=== PATIENT | female | born 1940 | race African-American/Black ===

== ENCOUNTER 2017-01-25 10:52 | Inpatient (IN) | payer OTHER ==
[2017-01-25] MEDS ORDERED: SODIUM CHLORIDE 0.9% 1000 ML INFUS.BAG IV ONE (11:12)
--- NOTE | 2017-01-25 11:19 | PDOC ---
Attending Attestation - Resident Resident Name: Alfa Alvarez - ED Attending Attestation I have performed the following: I have examined & evaluated the patient, The case was reviewed & discussed with the resident, I agree w/resident's findings & plan, Exceptions are as noted - HPI HPI: 01/25/17 11:18 Abscess on Leg - Physicial Exam PE: 01/25/17 11:18 Non Toxic - Medical Decision Making 01/25/17 11:[address] Alfa Alvarez's Assessment and Plan <Jalen Cruz - Last Filed: 01/25/17 11:17> Heart Score/ECG Review - ECG Impressions Comment:: 01/25/17 15:[address] Cruz Impression: Normal sinus rhythm Right atrial enlargement Left axis deviation Pulmonary disease pattern ST&T wave abnormality, consider anterior ischemia Abnormal ECG Vent rate: 80 bpm <Annalisa Landa - Last Filed: 01/25/17 15:46>
--- NOTE | 2017-01-25 11:22 | PDOC ---
History of Present Illness - General Stated Complaint: Abscess ON LEG Time Seen by Provider: 01/25/17 10:54 History Source: Patient, EMS Exam Limitations: Dementia - History of Present Illness Initial Comments: 01/25/17 11:10 The patient is a 76F with a PMH of dementia, hypothyroidism who presents to the ED from [facility] for a LLE abscess. The patient cannot provide the hx so the hx is given by EMS and her paperwork. The patient's paperwork states that she has a LLE abscess and was started on augmentin BID 500 mg x 7 days. The patient is on coumadin secondary to multiple DVT's in LLE. Past History - Past Medical History Allergies/Adverse Reactions: Allergies Allergy/AdvReac Type Severity Reaction Status Date / Time Penicillins Allergy Verified 01/25/17 11:13 Home Medications: Ambulatory Orders Acetaminophen [Tylenol] 2 tab PO Q6H PRN 01/25/17 Alprazolam [Xanax] 0.25 mg PO Q6H PRN 01/25/17 Bisacodyl Suppository [Dulcolax Suppository -] 10 mg RC DAILY PRN 01/25/17 Cephalexin [Keflex] 500 mg PO BID 01/25/17 Citalopram Hydrobromide [Celexa -] 10 mg PO DAILY 01/25/17 Docusate Sodium [Move It Along] 100 mg PO BID 01/25/17 Gabapentin 300 mg PO BID 01/25/17 Hydromorphone HCl 4 mg PO BID 01/25/17 Hydromorphone HCl 4 mg PO Q6H PRN 01/25/17 Lactobacillus Acidophilus [Acidophilus] 100 mg PO BID 01/25/17 Levothyroxine Sodium [Levo-T] 50 mcg PO 0630 01/25/17 Magnesium Hydroxide [Milk of Magnesia] 2,400 mg PO DAILY PRN 01/25/17 Mirtazapine [Remeron -] 30 mg PO HS 01/25/17 Polyethylene Glycol 3350 [Miralax (For Bowel Prep) -] 17 gm PO DAILY 01/25/17 Quetiapine Fumarate [Seroquel -] 25 mg PO BID 01/25/17 Sennosides [Senokot] 2 tab PO HS 01/25/17 Warfarin Sodium [Coumadin] 5 mg PO DAILY 01/25/17 Review of Systems - Review of Systems Able to Perform ROS?: No (Demented) *Physical Exam - Physical Exam General Appearance: Yes: Nourished, Appropriately Dressed, Other (Bedbound) HEENT: positive: Normal Voice, Hearing Grossly Normal Respiratory/Chest: negative: Chest Tender, Lungs Clear (coarse breath sounds b/l ) Cardiovascular: positive: Regular Rhythm, Regular Rate, S1, S2. negative: Diastolic Murmur, Systolic Murmur Gastrointestinal/Abdominal: positive: Flat, Soft. negative: Tender Extremity: positive: Swelling (L calf), Calf Tenderness Integumentary: positive: Dry, Warm, Swelling Neurologic: positive: Normal Mood/Affect. negative: Fully Oriented Heart Score/ECG Review - ECG Impressions Comment:: 01/25/17 13:24 NSR with p wave enlargment and t wave inversion s in v2-v6 OK 124 QRS 86 QTC 422 ED Treatment Course - LABORATORY CBC & Chemistry Diagram: 01/25/17 11:39 01/25/17 11:39 Medical Decision Making - Medical Decision Making 01/25/17 11:51 The patient is a 76F with a PMH of dementia and hypothyroidism who presents to the ED with an abscess on her LLE. 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 The patient's urine was grossly dark brown. She is having watery diarrhea when we turned her. The abscess is actively draining pus. Will cover with broad spectrum abx. I will reassess when labs/imaging return. 01/25/17 12:59 WBC 12. Hgb 7.8 from 8.4 on 01/22 at the healthcare facility. UA is indicative of UTI but also shows blood. 01/25/17 13:14 Son came to bedside. He expressed that the patient had a cat bite and scratch near the area that is infected in her LLE. He also stated that she was put on a new psych medication and opioid medication are new. He is also requesting for tegretol for the patient's trigeminal neuralgia. Will discuss with my attending. *DC/Admit/Observation/Transfer Diagnosis at time of Disposition: Abscess Urinary tract infection Qualifiers: Urinary tract infection type: site unspecified Hematuria presence: with hematuria Qualified Code(s): N39.0 - Urinary tract infection, site not specified ; N39.0 - Urinary tract infection, site not specified; R31.9 - Hematuria, unspecified; R31.9 - Hematuria, unspecified - Discharge Dispostion Condition at time of disposition: Guarded Admit: Yes
[2017-01-25 11:48] LABS: BASOPHIL 0.8 % (0-2.0); MCHC 31.9 g/dl (32.0-36.0); MEAN CELL VOLUME 87.8 fl (80-96); MEAN PLT VOLUME 9.1 fl (7.5-11.1); NEUTROPHILS 77.2 % (42.8-82.8); PLATELET COUNT 328 K/MM3 (134-434); RDW 15.6 % (11.6-15.6)
[2017-01-25] MEDS ORDERED: PIPERACILLIN/TAZOB 3.375 GM/50 ML PRE-DOCKED IV ONE (12:02)
[2017-01-25] MEDS ORDERED: VANCOMYCIN 1,000 MG in DEXTROSE 5%-WATER - 250 ML IVPB ONE (12:02)
[2017-01-25 12:05] LABS: INR 2.15 (0.82-1.09); PROTHROMBIN TIME (PATIENT) 24.3 SEC (9.98-11.88)
[2017-01-25 12:07] LABS: ACTIVATED PTT 37.7 SECONDS (26.9-34.4)
[2017-01-25] MEDS ORDERED: VANCOMYCIN 1 GRAM (PRE-DOCKED) 250 ML IVPB ONE (12:11)
[2017-01-25] MEDS ORDERED: PIPERACILLIN/TAZOB 3.375 GM 50 ML IVPB ONE (12:11)
[2017-01-25 12:14] LABS: VENOUS BLOOD GAS HCO3 28.4 meq/L (19-25); VENOUS PH 7.35 (7.32-7.42)
[2017-01-25 12:15] LABS: ALBUMIN 1.9 g/dl (3.4-5.0); ANION GAP 10 (8-16); BILIRUBIN,TOTAL 0.4 mg/dL (0.2-1.0); CALCIUM 7.6 mg/dL (8.5-10.1); CO2 26 mmol/L (21-32); CREATININE 3.5 mg/dL (0.55-1.02); GLUCOSE,RANDOM 100 mg/dL (74-106); SGPT/ALT 27 U/L (12-78)
[2017-01-25 12:17] LABS: ALK PHOS 58 U/L (45-117); TROPONIN I 0.04 ng/ml (0.00-0.05)
[2017-01-25 12:18] LABS: URINE APPEARANCE TURBID; URINE BILIRUBIN NEGATIVE (NEGATIVE); URINE BLOOD 3+ (NEGATIVE); URINE COLOR YELLOW; URINE GLUCOSE (UA) NEGATIVE (NEGATIVE); URINE KETONE TRACE (NEGATIVE); URINE NITRITE NEGATIVE (NEGATIVE)
[2017-01-25 12:19] LABS: CPK 187 IU/L (26-192); SGOT/AST 45 U/L (15-37)
[2017-01-25 12:20] LABS: URINE PROTEIN 2+ (NEGATIVE)
[2017-01-25 12:30] LABS: URINE BACTERIA MANY /hpf (NONE SEEN); URINE MUCUS MANY; URINE RBC 50 /hpf (0-3); URINE WBC 58 /hpf (3-5)
[2017-01-25] MEDS ORDERED: carBAMazepine 100 MG TAB.CHEW PO ONE (14:01)
[2017-01-25] MEDS ORDERED: carBAMazepine 200 MG TABLET ONE (14:21)
--- NOTE | 2017-01-25 14:52 | EKG ---
Test Reason : Blood Pressure : / mmHG Vent. Rate : 080 BPM Atrial Rate : 080 BPM P-R Int : 124 ms QRS Dur : 086 ms QT Int : 366 ms P-R-T Axes : 035 -67 -01 degrees QTc Int : 422 ms NORMAL SINUS RHYTHM RIGHT ATRIAL ENLARGEMENT LEFT AXIS DEVIATION ABNORMAL ECG NO PREVIOUS ECGS AVAILABLE Confirmed by KALPESH CROWLEY, AKANKSHA ([id number]) on 01/25/2017 2:52:20 PM Referred By: Confirmed By:AKANKSHA POSEY MD
--- NOTE | 2017-01-25 18:08 | HP ---
Admitting History and Physical - Primary Care Physician PCP: Madi Lacy - Admission History of Present Illness: The patient is a 76F with a PMH of dementia, hypothyroidism who presents to the ED from [facility] for a LLE abscess. The patient cannot provide the hx so the hx is given by EMS and her paperwork. The patient's paperwork states that she has a LLE abscess and was started on augmentin BID 500 mg x 7 days. The patient is on coumadin secondary to multiple DVT's in LLE. 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 Endocrine: Yes: Hypothyroidism - Smoking History Smoking history: Unknown if ever smoked Have you smoked in the past 12 months: No - Alcohol/Substance Use Hx Alcohol Use: No Home Medications - Allergies Allergies/Adverse Reactions: Allergies Allergy/AdvReac Type Severity Reaction Status Date / Time Penicillins Allergy Verified 01/25/17 11:13 - Home Medications Home Medications: Ambulatory Orders Acetaminophen [Tylenol] 2 tab PO Q6H PRN 01/25/17 Alprazolam [Xanax] 0.25 mg PO Q6H PRN 01/25/17 Bisacodyl Suppository [Dulcolax Suppository -] 10 mg RC DAILY PRN 01/25/17 Cephalexin [Keflex] 500 mg PO BID 01/25/17 Citalopram Hydrobromide [Celexa -] 10 mg PO DAILY 01/25/17 Docusate Sodium [Move It Along] 100 mg PO BID 01/25/17 Gabapentin 300 mg PO BID 01/25/17 Hydromorphone HCl 4 mg PO BID 01/25/17 Hydromorphone HCl 4 mg PO Q6H PRN 01/25/17 Lactobacillus Acidophilus [Acidophilus] 100 mg PO BID 01/25/17 Levothyroxine Sodium [Levo-T] 50 mcg PO 0630 01/25/17 Magnesium Hydroxide [Milk of Magnesia] 1,200 mg PO DAILY PRN 01/25/17 Mirtazapine [Remeron -] 30 mg PO HS 01/25/17 Polyethylene Glycol 3350 [Miralax (For Bowel Prep) -] 17 gm PO DAILY 01/25/17 Quetiapine Fumarate [Seroquel -] 25 mg PO BID 01/25/17 Sennosides [Senokot] 2 tab PO HS 01/25/17 Warfarin Sodium [Coumadin] 5 mg PO DAILY 01/25/17 Physical Examination Vital Signs: Vital Signs Temperature 99.7 F H 01/25/17 11:13 Pulse Rate 86 01/25/17 11:13 Respiratory Rate 18 01/25/17 11:13 Blood Pressure 122/73 01/25/17 11:13 O2 Sat by Pulse Oximetry (%) 99 01/25/17 11:13 Constitutional: Yes: No Distress HENT: Yes: Atraumatic Neck: Yes: Supple Cardiovascular: Yes: Regular Rate and Rhythm Respiratory: Yes: CTA Bilaterally Gastrointestinal: Yes: Normal Bowel Sounds Extremities: Yes: Other (ABCESS LEFT LOWER POST CALF) Edema: No Neurological: Yes: Alert Imaging - Results X-ray: Report Reviewed Problem List - Problems (1) Abscess Assessment/Plan: iv abx id on board Code(s): L02.91 - CUTANEOUS ABSCESS, UNSPECIFIED (2) Urinary tract infection Assessment/Plan: on meds uc p Code(s): N39.0 - URINARY TRACT INFECTION, SITE NOT SPECIFIED Qualifiers: Urinary tract infection type: site unspecified Hematuria presence: with hematuria Qualified Code(s): N39.0 - Urinary tract infection, site not specified; N39.0 - Urinary tract infection, site not specified; R31.9 - Hematuria, unspecified; R31.9 - Hematuria, unspecified (3) BOYD (acute kidney injury) Assessment/Plan: MILD HYDRATION PROBABLY CKD NEPHRO CONSULT Code(s): N17.9 - ACUTE KIDNEY FAILURE, UNSPECIFIED Assessment/Plan Laboratory Tests 01/25/17 01/25/17 01/25/17 11:39 11:39 11:39 WBC 12.0 H RBC 2.78 L Hgb 7.8 L Hct 24.4 L MCV 87.8 MCH 28.0 MCHC 31.9 L RDW 15.6 Plt Count 328 MPV 9.1 Neutrophils % 77.2 Lymphocytes % 11.6 Monocytes % 9.4 Eosinophils % 1.0 Basophils % 0.8 PT with INR 24.30 H INR 2.15 H PTT (Actin FS) 37.7 H VBG pH POC VBG pCO2 POC VBG pO2 Mixed VBG HCO3 Sodium 143 Potassium 5.3 H Chloride 107 Carbon Dioxide 26 Anion Gap 10 BUN 61 H Creatinine 3.5 H Creat Clearance w eGFR 12.63 Random Glucose 100 Lactic Acid Calcium 7.6 L Total Bilirubin 0.4 AST 45 H ALT 27 Alkaline Phosphatase 58 Creatine Kinase 187 Creatine Kinase Index 0.7 CK-MB (CK-2) 1.456 Troponin I 0.04 Total Protein 6.0 L Albumin 1.9 L Urine Color Urine Appearance Urine pH Urine Protein Urine Glucose (UA) Urine Ketones Urine Blood Urine Nitrite Urine Bilirubin Urine Urobilinogen Urine RBC Urine WBC Urine Bacteria Urine Mucus Blood Type Antibody Screen Spec Expiration Date 01/25/17 01/25/17 01/25/17 11:39 11:45 12:09 WBC RBC Hgb Hct MCV MCH MCHC RDW Plt Count MPV Neutrophils % Lymphocytes % Monocytes % Eosinophils % Basophils % PT with INR INR PTT (Actin FS) VBG pH POC VBG pCO2 POC VBG pO2 Mixed VBG HCO3 Sodium Potassium Chloride Carbon Dioxide Anion Gap BUN Creatinine Creat Clearance w eGFR Random Glucose Lactic Acid 1.7 Calcium Total Bilirubin AST ALT Alkaline Phosphatase Creatine Kinase Creatine Kinase Index CK-MB (CK-2) Troponin I Total Protein Albumin Urine Color Yellow Urine Appearance Turbid Urine pH 7.0 Urine Protein 2+ H Urine Glucose (UA) Negative Urine Ketones Trace H Urine Blood 3+ H Urine Nitrite Negative Urine Bilirubin Negative Urine Urobilinogen 2.0 H Urine RBC 50 Urine WBC 58 Urine Bacteria Many Urine Mucus Many Blood Type Cancelled Antibody Screen Cancelled Spec Expiration Date Cancelled 01/25/17 01/25/17 01/25/17 12:09 12:40 16:10 WBC RBC Hgb Hct MCV MCH MCHC RDW Plt Count MPV Neutrophils % Lymphocytes % Monocytes % Eosinophils % Basophils % PT with INR INR PTT (Actin FS) VBG pH 7.35 POC VBG pCO2 52.8 H POC VBG pO2 31.7 Mixed VBG HCO3 28.4 H Sodium Potassium Chloride Carbon Dioxide Anion Gap BUN Creatinine Creat Clearance w eGFR Random Glucose Lactic Acid Calcium Total Bilirubin AST ALT Alkaline Phosphatase Creatine Kinase Creatine Kinase Index CK-MB (CK-2) Troponin I Total Protein Albumin Urine Color Urine Appearance Urine pH Urine Protein Urine Glucose (UA) Urine Ketones Urine Blood Urine Nitrite Urine Bilirubin Urine Urobilinogen Urine RBC Urine WBC Urine Bacteria Urine Mucus Blood Type B POSITIVE B POSITIVE Antibody Screen Spec Expiration Date
[2017-01-25] MEDS ORDERED: BISACODYL 10 MG SUPP.RECT RC PRN (18:09)
[2017-01-25 19:56] LABS: URINE LEUK ESTERASE TRACE (NEGATIVE)
[2017-01-25] MEDS ORDERED: ACETAMINOPHEN 325 MG TABLET (FP) ONE (21:13)
[2017-01-25] MEDS: ACETAMINOPHEN 325 MG TABLET (FP) PO PRN (21:27)
[2017-01-25] MEDS ORDERED: QUEtiapine FUMARATE 25 MG TABLET (FP) ONE (22:11)
[2017-01-25] MEDS: QUEtiapine FUMARATE 25 MG TABLET (FP) PO SCH (23:13)
[2017-01-26] MEDS: ALPRAZolam 0.25 MG TABLET PO PRN ×2 (00:51→08:58)
[2017-01-26 01:43] VITALS: BMI 22.5
[2017-01-26] MEDS: LEVOTHYROXINE NA 50 MCG TABLET (FP) PO SCH (06:16)
[2017-01-26 07:32] LABS: BASOPHIL 0.6 % (0-2.0); EOSINOPHIL 2.8 % (0-4.5); MCH 28.8 pg (25.7-33.7); MEAN CELL VOLUME 87.3 fl (80-96); MEAN PLT VOLUME 9.5 fl (7.5-11.1); NEUTROPHILS 73.6 % (42.8-82.8); PLATELET COUNT 301 K/MM3 (134-434); RDW 15.2 % (11.6-15.6); WHITE BLOOD COUNT 8.5 K/mm3 (4.0-10.0)
[2017-01-26 07:41] LABS: INR 2.58 (0.82-1.09); PROTHROMBIN TIME (PATIENT) 29.2 SEC (9.98-11.88)
[2017-01-26 07:59] LABS: ALBUMIN 1.7 g/dl (3.4-5.0); ANION GAP 8 (8-16); CALCIUM 7.2 mg/dL (8.5-10.1); CO2 28 mmol/L (21-32); CREATININE 3.6 mg/dL (0.55-1.02); GLUCOSE,RANDOM 72 mg/dL (74-106); SGOT/AST 22 U/L (15-37); SGPT/ALT 20 U/L (12-78)
[2017-01-26 08:00] LABS: ALK PHOS 48 U/L (45-117); BILIRUBIN,TOTAL 0.4 mg/dL (0.2-1.0)
[2017-01-26] MEDS: ACETAMINOPHEN 325 MG TABLET (FP) PO PRN (08:58)
[2017-01-26] MEDS: QUEtiapine FUMARATE 25 MG TABLET (FP) PO SCH ×2 (09:00→22:36)
[2017-01-26] MEDS: POLYETHYLENE GLYCOL 3350 119 GM BTL PO SCH (09:13)
[2017-01-26 09:40] LABS: ANISOCYTOSIS 1+; HYPOCHROMIA 2+; MICROCYTOSIS 1+
[2017-01-26] MEDS ORDERED: CITALOPRAM HYDROBROMIDE 10 MG TABLET (FP) PO SCH (10:00)
[2017-01-26] MEDS ORDERED: PT OWN MED DRAWER 7, Y5N ONE ×2 (12:15→13:55)
[2017-01-26] MEDS ORDERED: SODIUM CHLORIDE 1,000 ML IV SCH (15:15)
--- NOTE | 2017-01-26 15:56 | CON.ID ---
Consult Consult Specialty:: infectious diseases Reason for Consultation:: wound/abscess and cellulitis of the left leg - History of Present Illness History of Present Illness: patient with gross dementia in no capacity to give history [place] evlaution of her cellulittis and abscess on the left post leg 76F with a PMH of dementia, hypothyroidism who presents to the ED from [facility] for a LLE abscess. The patient cannot provide the hx so the hx is given by EMS and her paperwork. The patient's paperwork states that she has a LLE abscess and was started on augmentin BID 500 mg x 7 days. The patient is on coumadin secondary to multiple DVT's in LLE. patient basically moans - History Source History Provided By: Transfer Record Limitations to Obtaining History: Clinical Condition - Alcohol/Substance Use Hx Alcohol Use: No - Smoking History Smoking history: Unknown if ever smoked Have you smoked in the past 12 months: No Aproximately how many cigarettes per day: 0 Home Medications - Allergies Allergies/Adverse Reactions: Allergies Allergy/AdvReac Type Severity Reaction Status Date / Time Penicillins Allergy Verified 01/25/17 11:13 - Home Medications Home Medications: Ambulatory Orders Acetaminophen [Tylenol] 2 tab PO Q6H PRN 01/25/17 Alprazolam [Xanax] 0.25 mg PO Q6H PRN 01/25/17 Bisacodyl Suppository [Dulcolax Suppository -] 10 mg RC DAILY PRN 01/25/17 Cephalexin [Keflex] 500 mg PO BID 01/25/17 Citalopram Hydrobromide [Celexa -] 10 mg PO DAILY 01/25/17 Docusate Sodium [Move It Along] 100 mg PO BID 01/25/17 Gabapentin 300 mg PO BID 01/25/17 Hydromorphone HCl 4 mg PO BID 01/25/17 Hydromorphone HCl 4 mg PO Q6H PRN 01/25/17 Lactobacillus Acidophilus [Acidophilus] 100 mg PO BID 01/25/17 Levothyroxine Sodium [Levo-T] 50 mcg PO 0630 01/25/17 Magnesium Hydroxide [Milk of Magnesia] 1,200 mg PO DAILY PRN 01/25/17 Mirtazapine [Remeron -] 30 mg PO HS 01/25/17 Polyethylene Glycol 3350 [Miralax (For Bowel Prep) -] 17 gm PO DAILY 01/25/17 Quetiapine Fumarate [Seroquel -] 25 mg PO BID 01/25/17 Sennosides [Senokot] 2 tab PO HS 01/25/17 Warfarin Sodium [Coumadin] 5 mg PO DAILY 01/25/17 Review of Systems Unable to obtain ROS, reason: unable to obtain Physical Exam Vital Signs: Vital Signs Temperature 98.0 F 01/26/17 15:34 Pulse Rate 78 01/26/17 15:34 Respiratory Rate 18 01/26/17 15:34 Blood Pressure 103/58 01/26/17 15:34 O2 Sat by Pulse Oximetry (%) 96 01/25/17 23:13 Constitutional: Yes: Mild Distress, Other Cardiovascular: Yes: Regular Rate and Rhythm Respiratory: Yes: Regular, CTA Bilaterally Gastrointestinal: Yes: Normal Bowel Sounds, Soft Extremities: Yes: Erythema, Other Integumentary: Yes: Erythema, Other Wound/Incision: Yes: Draining, Other Neurological: Yes: Alert, Other Psychiatric: Yes: Alert, Other Labs: CBC, BMP 01/26/17 06:30 01/26/17 06:30 Imaging - Results Chest X-ray: Report Reviewed, Image Reviewed Assessment/Plan Problem List - Problems (1) Abscess Code(s): L02.91 - CUTANEOUS ABSCESS, UNSPECIFIED (2) Urinary tract infection Code(s): N39.0 - URINARY TRACT INFECTION, SITE NOT SPECIFIED Qualifiers: Urinary tract infection type: site unspecified Hematuria presence: with hematuria Qualified Code(s): N39.0 - Urinary tract infection, site not specified; N39.0 - Urinary tract infection, site not specified; R31.9 - Hematuria, unspecified; R31.9 - Hematuria, unspecified plan will start patient on clinda wound care rest as per primary dressing to be done
--- NOTE | 2017-01-26 16:20 | PN ---
Progress Note, Physician History of Present Illness: stable - Current Medication List Current Medications: Active Medications Acetaminophen (Tylenol -) 325 mg PO Q6H PRN PRN Reason: FEVER OR PAIN Last Admin: 01/26/17 08:58 Dose: 325 mg Alprazolam (Xanax -) 0.25 mg PO Q6H PRN PRN Reason: ANXIETY Last Admin: 01/26/17 08:58 Dose: 0.25 mg Bisacodyl (Dulcolax Suppository -) 10 mg RC DAILY PRN PRN Reason: CONSTIPATION Hydromorphone HCl (Dilaudid -) 4 mg PO Q12H PRN PRN Reason: PAIN Last Admin: 01/26/17 13:44 Dose: 4 mg Sodium Chloride (Normal Saline -) 1,000 mls @ 50 mls/hr IV Q20H [facility] Last Admin: 01/26/17 15:49 Dose: 50 mls/hr Clindamycin Phosphate (Cleocin 300 Mg Premix Ivpb) 50 mls @ 100 mls/hr IVPB Q8H -IV [facility] Levothyroxine Sodium (Synthroid -) 50 mcg PO 0630 [facility] Last Admin: 01/26/17 06:16 Dose: 50 mcg Polyethylene Glycol (Miralax (For Daily Use) -) 17 gm PO DAILY [facility] Last Admin: 01/26/17 09:13 Dose: Not Given Quetiapine Fumarate (Seroquel -) 25 mg PO BID [facility] Last Admin: 01/26/17 09:00 Dose: 25 mg Warfarin Sodium (Coumadin -) 5 mg PO DAILY@1800 [facility] - Objective Vital Signs: Vital Signs Temperature 98.0 F 01/26/17 15:34 Pulse Rate 78 01/26/17 15:34 Respiratory Rate 18 01/26/17 15:34 Blood Pressure 103/58 01/26/17 15:34 O2 Sat by Pulse Oximetry (%) 96 01/25/17 23:13 Constitutional: Yes: No Distress HENT: Yes: Atraumatic Neck: Yes: Supple Cardiovascular: Yes: Regular Rate and Rhythm Respiratory: Yes: CTA Bilaterally Gastrointestinal: Yes: Normal Bowel Sounds Extremities: Yes: WNL Neurological: Yes: Alert, Oriented Labs: CBC, BMP 01/26/17 06:30 01/26/17 06:30 INR, PTT INR 2.58 (0.82-1.09) H 01/26/17 06:30 Problem List - Problems (1) Abscess Assessment/Plan: iv abx id on board Code(s): L02.91 - CUTANEOUS ABSCESS, UNSPECIFIED (2) Urinary tract infection Assessment/Plan: on meds uc p Code(s): N39.0 - URINARY TRACT INFECTION, SITE NOT SPECIFIED Qualifiers: Urinary tract infection type: site unspecified Hematuria presence: with hematuria Qualified Code(s): N39.0 - Urinary tract infection, site not specified; N39.0 - Urinary tract infection, site not specified; R31.9 - Hematuria, unspecified; R31.9 - Hematuria, unspecified
[2017-01-26 16:58] LABS: BASOPHIL 0.4 % (0-2.0); EOSINOPHIL 3.6 % (0-4.5); MCH 28.1 pg (25.7-33.7); MCHC 32.3 g/dl (32.0-36.0); MEAN CELL VOLUME 86.9 fl (80-96); MEAN PLT VOLUME 9.6 fl (7.5-11.1); NEUTROPHILS 73.4 % (42.8-82.8); PLATELET COUNT 328 K/MM3 (134-434); RDW 15.2 % (11.6-15.6); WHITE BLOOD COUNT 7.4 K/mm3 (4.0-10.0)
[2017-01-26] MEDS: CLINDAMYCIN 300 MG PREMIX IVPB 50 ML IVPB SCH (17:12)
[2017-01-26] MEDS: WARFARIN NA 5 MG TABLET (UD) PO SCH (18:30)
--- NOTE | 2017-01-26 20:08 | CONSULT ---
Consult Consult Specialty:: Nephrology Reason for Consultation:: BOYD - History of Present Illness Chief Complaint: sent in for left lower extremity cellulitis History of Present Illness: Pt is a 76 year old female with pmhx of dementia and hypothyroidism who was sent in from the [place] for a left lower ext abscess/cellulitis. She is unable to give history secondary to dementia. She denies fevers or chills. She denies shortness of breath. I was called to evaluate her for BOYD as her creatinine is elevated. She denies history of CKD however she is confused and not a reliable historian. She was also found to be anemic. 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 Endocrine: Yes: Hypothyroidism - Alcohol/Substance Use Hx Alcohol Use: No - Smoking History Smoking history: Unknown if ever smoked Have you smoked in the past 12 months: No Aproximately how many cigarettes per day: 0 Home Medications - Allergies Allergies/Adverse Reactions: Allergies Allergy/AdvReac Type Severity Reaction Status Date / Time Penicillins Allergy Verified 01/25/17 11:13 - Home Medications Home Medications: Ambulatory Orders Acetaminophen [Tylenol] 2 tab PO Q6H PRN 01/25/17 Alprazolam [Xanax] 0.25 mg PO Q6H PRN 01/25/17 Bisacodyl Suppository [Dulcolax Suppository -] 10 mg RC DAILY PRN 01/25/17 Cephalexin [Keflex] 500 mg PO BID 01/25/17 Citalopram Hydrobromide [Celexa -] 10 mg PO DAILY 01/25/17 Docusate Sodium [Move It Along] 100 mg PO BID 01/25/17 Gabapentin 300 mg PO BID 01/25/17 Hydromorphone HCl 4 mg PO BID 01/25/17 Hydromorphone HCl 4 mg PO Q6H PRN 01/25/17 Lactobacillus Acidophilus [Acidophilus] 100 mg PO BID 01/25/17 Levothyroxine Sodium [Levo-T] 50 mcg PO 0630 01/25/17 Magnesium Hydroxide [Milk of Magnesia] 1,200 mg PO DAILY PRN 01/25/17 Mirtazapine [Remeron -] 30 mg PO HS 01/25/17 Polyethylene Glycol 3350 [Miralax (For Bowel Prep) -] 17 gm PO DAILY 01/25/17 Quetiapine Fumarate [Seroquel -] 25 mg PO BID 01/25/17 Sennosides [Senokot] 2 tab PO HS 01/25/17 Warfarin Sodium [Coumadin] 5 mg PO DAILY 01/25/17 Family Disease History - Family Disease History Family History: Unable to Obtain Review of Systems Unable to obtain ROS, reason: pt confused - Review of Systems Constitutional: reports: No Symptoms Eyes: reports: No Symptoms Neck: reports: No Symptoms Cardiovascular: reports: No Symptoms Respiratory: reports: No Symptoms Gastrointestinal: reports: No Symptoms Genitourinary: reports: No Symptoms Musculoskeletal: reports: No Symptoms Integumentary: reports: Erythema, Wound Neurological: reports: No Symptoms Physical Exam Vital Signs: Vital Signs Temperature 98.1 F 01/26/17 17:46 Pulse Rate 72 01/26/17 17:46 Respiratory Rate 18 01/26/17 17:46 Blood Pressure 102/59 01/26/17 17:46 O2 Sat by Pulse Oximetry (%) 96 01/25/17 23:13 Constitutional: Yes: Calm Eyes: Yes: Conjunctiva Clear HENT: Yes: Atraumatic Neck: Yes: Supple Cardiovascular: Yes: S1, S2 Respiratory: Yes: CTA Bilaterally Renal/: Yes: Incontinence Musculoskeletal: Yes: Muscle Weakness Edema: No Wound/Incision: Yes: Dressing Dry and Intact Neurological: Yes: Confusion Labs: CBC, BMP 01/26/17 16:00 01/26/17 06:30 Laboratory Tests 01/25/17 01/25/17 01/25/17 11:39 11:39 12:09 WBC Hgb 7.8 L Plt Count Sodium Potassium 5.3 H Chloride Carbon Dioxide Creatinine 3.5 H Random Glucose Urine Color Yellow Urine Appearance Turbid Urine pH 7.0 Ur Specific [place] 1.015 Urine Protein 2+ H Urine Blood 3+ H Stool Occult Blood 01/26/17 01/26/17 01/26/17 06:30 06:30 12:40 WBC Hgb 6.9 L* D Plt Count Sodium 145 Potassium 4.6 Chloride 109 H Carbon Dioxide 28 Creatinine 3.6 H Random Glucose 72 L D Urine Color Urine Appearance Urine pH Ur Specific [place] Urine Protein Urine Blood Stool Occult Blood Negative 01/26/17 16:00 WBC 7.4 Hgb 6.7 L* Plt Count 328 Sodium Potassium Chloride Carbon Dioxide Creatinine Random Glucose Urine Color Urine Appearance Urine pH Ur Specific [place] Urine Protein Urine Blood Stool Occult Blood Imaging - Results Chest X-ray: Report Reviewed Problem List - Problems (1) Abscess Code(s): L02.91 - CUTANEOUS ABSCESS, UNSPECIFIED (2) BOYD (acute kidney injury) Code(s): N17.9 - ACUTE KIDNEY FAILURE, UNSPECIFIED (3) Hyperkalemia Code(s): E87.5 - HYPERKALEMIA Assessment/Plan Current Medications Generic Name Dose Route Start Last Admin Trade Name Freq PRN Reason Stop Dose Admin Acetaminophen 325 mg 01/25/17 18:09 01/26/17 08:58 Tylenol - PO 325 mg Q6H PRN Administration FEVER OR PAIN Alprazolam 0.25 mg 01/25/17 18:09 01/26/17 08:58 Xanax - PO 0.25 mg Q6H PRN Administration ANXIETY Bisacodyl 10 mg 01/25/17 18:09 Dulcolax Suppository - RC DAILY PRN CONSTIPATION Hydromorphone HCl 4 mg 01/26/17 12:56 01/26/17 13:44 Dilaudid - PO 4 mg Q12H PRN Administration PAIN Clindamycin Phosphate 50 mls @ 100 mls/hr 01/26/17 16:15 01/26/17 17:12 Cleocin 300 Mg Premix Ivpb IVPB 100 mls/hr Q8H-IV [facility] Administration Levothyroxine Sodium 50 mcg 01/26/17 06:30 01/26/17 06:16 Synthroid - PO 50 mcg 0630 [facility] Administration Polyethylene Glycol 17 gm 01/26/17 10:00 01/26/17 09:13 Miralax (For Daily Use) - PO Not Given DAILY [facility] Quetiapine Fumarate 25 mg 01/25/17 22:00 01/26/17 09:00 Seroquel - PO 25 mg BID [facility] Administration Warfarin Sodium 5 mg 01/26/17 18:00 01/26/17 18:30 Coumadin - PO 5 mg DAILY@1800 [facility] Administration 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 hyperkalemia resolved 3. anemia 4. hypothyroidism 5. leg abscess 6. 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
[2017-01-26 22:17] LABS: URINE APPEARANCE CLOUDY; URINE BILIRUBIN NEGATIVE (NEGATIVE); URINE BLOOD 3+ (NEGATIVE); URINE COLOR YELLOW; URINE GLUCOSE (UA) NEGATIVE (NEGATIVE); URINE KETONE NEGATIVE (NEGATIVE); URINE NITRITE NEGATIVE (NEGATIVE); URINE UROBILINOGEN NEGATIVE mg/dL (0.2-1.0)
[2017-01-26 22:18] LABS: URINE PROTEIN 1+ (NEGATIVE)
[2017-01-26 22:24] LABS: URINE BACTERIA MODERATE /hpf (NONE SEEN); URINE MUCUS FEW; URINE RBC 352 /hpf (0-3); URINE WBC 19 /hpf (3-5); YEAST FEW
[2017-01-27] MEDS: CLINDAMYCIN 300 MG PREMIX IVPB 50 ML IVPB SCH ×3 (03:28→17:40)
[2017-01-27] MEDS: LEVOTHYROXINE NA 50 MCG TABLET (FP) PO SCH (06:01)
[2017-01-27 07:41] LABS: BASOPHIL 0.5 % (0-2.0); EOSINOPHIL 3.6 % (0-4.5); MCHC 32.7 g/dl (32.0-36.0); MEAN CELL VOLUME 88.4 fl (80-96); MEAN PLT VOLUME 9.5 fl (7.5-11.1); NEUTROPHILS 71.5 % (42.8-82.8); PLATELET COUNT 337 K/MM3 (134-434); RDW 15.5 % (11.6-15.6); WHITE BLOOD COUNT 7.3 K/mm3 (4.0-10.0)
[2017-01-27 07:43] LABS: INR 3.31 (0.82-1.09); PROTHROMBIN TIME (PATIENT) 37.4 SEC (9.98-11.88)
[2017-01-27 07:55] LABS: ALBUMIN 1.9 g/dl (3.4-5.0); CALCIUM 7.7 mg/dL (8.5-10.1); SGOT/AST 19 U/L (15-37); SGPT/ALT 19 U/L (12-78)
[2017-01-27 08:04] LABS: ALK PHOS 56 U/L (45-117); ANION GAP 7 (8-16); BILIRUBIN,TOTAL 0.5 mg/dL (0.2-1.0); CO2 28 mmol/L (21-32); CREATININE 3.7 mg/dL (0.55-1.02); GLUCOSE,RANDOM 64 mg/dL (74-106); TOT PROT 5.7 g/dl (6.4-8.2)
[2017-01-27 09:19] LABS: URINE LEUK ESTERASE Negative (NEGATIVE)
[2017-01-27] MEDS: QUEtiapine FUMARATE 25 MG TABLET (FP) PO SCH ×2 (10:00→21:40)
--- NOTE | 2017-01-27 12:34 | PN ---
Progress Note, Physician History of Present Illness: Pt seen and examined at bedside. She remains confused. - Current Medication List Current Medications: Active Medications Acetaminophen (Tylenol -) 325 mg PO Q6H PRN PRN Reason: FEVER OR PAIN Last Admin: 01/26/17 08:58 Dose: 325 mg Alprazolam (Xanax -) 0.25 mg PO Q6H PRN PRN Reason: ANXIETY Last Admin: 01/26/17 08:58 Dose: 0.25 mg Bisacodyl (Dulcolax Suppository -) 10 mg RC DAILY PRN PRN Reason: CONSTIPATION Hydromorphone HCl (Dilaudid -) 4 mg PO Q6H PRN Last Admin: 01/26/17 22:35 Dose: 4 mg Clindamycin Phosphate (Cleocin 300 Mg Premix Ivpb) 50 mls @ 100 mls/hr IVPB Q8H -IV [facility] Last Admin: 01/27/17 03:28 Dose: Not Given Levothyroxine Sodium (Synthroid -) 50 mcg PO 0630 [facility] Last Admin: 01/27/17 06:01 Dose: 50 mcg Polyethylene Glycol (Miralax (For Daily Use) -) 17 gm PO DAILY [facility] Last Admin: 01/26/17 09:13 Dose: Not Given Quetiapine Fumarate (Seroquel -) 25 mg PO BID [facility] Last Admin: 01/26/17 22:36 Dose: 25 mg Warfarin Sodium (Coumadin -) 5 mg PO DAILY@1800 [facility] Last Admin: 01/26/17 18:30 Dose: 5 mg - Objective Vital Signs: Vital Signs Temperature 97.8 F 01/27/17 05:56 Pulse Rate 67 01/27/17 05:56 Respiratory Rate 20 01/27/17 05:56 Blood Pressure 104/73 01/27/17 05:56 O2 Sat by Pulse Oximetry (%) 95 01/26/17 21:00 Constitutional: Yes: Calm Eyes: Yes: Conjunctiva Clear HENT: Yes: Atraumatic Cardiovascular: Yes: S1, S2 Respiratory: Yes: CTA Bilaterally Gastrointestinal: Yes: Soft Genitourinary: Yes: Incontinence Musculoskeletal: Yes: Muscle Weakness Edema: No Wound/Incision: Yes: Dressing Dry and Intact Neurological: Yes: Confusion Labs: CBC, BMP 01/27/17 06:00 01/27/17 06:00 INR, PTT INR 3.31 (0.82-1.09) H 01/27/17 06:00 Problem List - Problems (1) Abscess Code(s): L02.91 - CUTANEOUS ABSCESS, UNSPECIFIED (2) BOYD (acute kidney injury) Code(s): N17.9 - ACUTE KIDNEY FAILURE, UNSPECIFIED (3) Hyperkalemia Code(s): E87.5 - HYPERKALEMIA Assessment/Plan Current Medications Generic Name Dose Route Start Last Admin Trade Name Freq PRN Reason Stop Dose Admin Acetaminophen 325 mg 01/25/17 18:09 01/26/17 08:58 Tylenol - PO 325 mg Q6H PRN Administration FEVER OR PAIN Alprazolam 0.25 mg 01/25/17 18:09 01/26/17 08:58 Xanax - PO 0.25 mg Q6H PRN Administration ANXIETY Bisacodyl 10 mg 01/25/17 18:09 Dulcolax Suppository - RC DAILY PRN CONSTIPATION Hydromorphone HCl 4 mg 01/26/17 20:24 01/26/17 22:35 Dilaudid - PO 4 mg Q6H PRN Administration Clindamycin Phosphate 50 mls @ 100 mls/hr 01/26/17 16:15 01/27/17 03:28 Cleocin 300 Mg Premix Ivpb IVPB Not Given Q8H-IV [facility] Levothyroxine Sodium 50 mcg 01/26/17 06:30 01/27/17 06:01 Synthroid - PO 50 mcg 0630 [facility] Administration Polyethylene Glycol 17 gm 01/26/17 10:00 01/26/17 09:13 Miralax (For Daily Use) - PO Not Given DAILY [facility] Quetiapine Fumarate 25 mg 01/25/17 22:00 01/26/17 22:36 Seroquel - PO 25 mg BID [facility] Administration Warfarin Sodium 5 mg 01/26/17 18:00 01/26/17 18:30 Coumadin - PO 5 mg DAILY@1800 [facility] Administration 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 hyperkalemia resolved 3. anemia 4. hypothyroidism 5. leg abscess 6. UTI 7. CKD Plan - will start d5 1/2 - repeat labs in am - hg is improved - likely ckd - called for outpt labs - repeat labs in am - will follow Dr Cat
[2017-01-27] MEDS: POLYETHYLENE GLYCOL 3350 119 GM BTL PO SCH (12:59)
[2017-01-27] MEDS: ALPRAZolam 0.25 MG TABLET PO PRN (15:02)
--- NOTE | 2017-01-27 15:58 | PN ---
Progress Note, Physician History of Present Illness: patient with dementia stable wound cx result noted swelling better - Current Medication List Current Medications: Active Medications Acetaminophen (Tylenol -) 325 mg PO Q6H PRN PRN Reason: FEVER OR PAIN Last Admin: 01/26/17 08:58 Dose: 325 mg Alprazolam (Xanax -) 0.25 mg PO Q6H PRN PRN Reason: ANXIETY Last Admin: 01/27/17 15:02 Dose: 0.25 mg Bisacodyl (Dulcolax Suppository -) 10 mg RC DAILY PRN PRN Reason: CONSTIPATION Hydromorphone HCl (Dilaudid -) 4 mg PO Q6H PRN Last Admin: 01/27/17 15:02 Dose: 4 mg Clindamycin Phosphate (Cleocin 300 Mg Premix Ivpb) 50 mls @ 100 mls/hr IVPB Q8H -IV [facility] Last Admin: 01/27/17 12:59 Dose: Not Given Aztreonam 1 gm/ Dextrose 50 mls @ 100 mls/hr IVPB Q8H-IV [facility] PRN Reason: Protocol Levothyroxine Sodium (Synthroid -) 50 mcg PO 0630 [facility] Last Admin: 01/27/17 06:01 Dose: 50 mcg Polyethylene Glycol (Miralax (For Daily Use) -) 17 gm PO DAILY [facility] Last Admin: 01/27/17 12:59 Dose: Not Given Quetiapine Fumarate (Seroquel -) 25 mg PO BID [facility] Last Admin: 01/27/17 10:00 Dose: 25 mg Warfarin Sodium (Coumadin -) 5 mg PO DAILY@1800 [facility] Last Admin: 01/26/17 18:30 Dose: 5 mg - Objective Vital Signs: Vital Signs Temperature 97.8 F 01/27/17 15:14 Pulse Rate 67 01/27/17 15:14 Respiratory Rate 20 01/27/17 15:14 Blood Pressure 95/62 01/27/17 15:14 O2 Sat by Pulse Oximetry (%) 95 01/26/17 21:00 Constitutional: Yes: Calm, Mild Distress Eyes: Yes: Conjunctiva Clear Neck: Yes: Supple Cardiovascular: Yes: Regular Rate and Rhythm Gastrointestinal: Yes: Normal Bowel Sounds, Soft Musculoskeletal: Yes: Other Extremities: Yes: Erythema, Other Integumentary: Yes: Erythema, Other Neurological: Yes: Alert, Other Labs: CBC, BMP 01/27/17 06:00 01/27/17 06:00 INR, PTT INR 3.31 (0.82-1.09) H 01/27/17 06:00 Assessment/Plan Problem List - Problems (1) Abscess Code(s): L02.91 - CUTANEOUS ABSCESS, UNSPECIFIED (2) Urinary tract infection Code(s): N39.0 - URINARY TRACT INFECTION, SITE NOT SPECIFIED Qualifiers: Urinary tract infection type: site unspecified Hematuria presence: with hematuria Qualified Code(s): N39.0 - Urinary tract infection, site not specified; N39.0 - Urinary tract infection, site not specified; R31.9 - Hematuria, unspecified; R31.9 - Hematuria, unspecified plan will start patient on clinda wound cx result noted added aztreo rest as per primary dressing to be done
[2017-01-27] MEDS ORDERED: AZTREONAM 1 GM in DEXTROSE 5%-WATER - 50 ML IVPB SCH (16:00)
[2017-01-27] MEDS: WARFARIN NA 5 MG TABLET (UD) PO SCH (17:38)
[2017-01-27] MEDS: AZTREONAM 0.5 GM in DEXTROSE 5%-WATER - 50 ML IVPB SCH (17:40)
--- NOTE | 2017-01-27 17:54 | PN ---
Progress Note, Physician History of Present Illness: stable - Current Medication List Current Medications: Active Medications Acetaminophen (Tylenol -) 325 mg PO Q6H PRN PRN Reason: FEVER OR PAIN Last Admin: 01/26/17 08:58 Dose: 325 mg Alprazolam (Xanax -) 0.25 mg PO Q6H PRN PRN Reason: ANXIETY Last Admin: 01/27/17 15:02 Dose: 0.25 mg Bisacodyl (Dulcolax Suppository -) 10 mg RC DAILY PRN PRN Reason: CONSTIPATION Hydromorphone HCl (Dilaudid -) 4 mg PO Q6H PRN Last Admin: 01/27/17 15:02 Dose: 4 mg Clindamycin Phosphate (Cleocin 300 Mg Premix Ivpb) 50 mls @ 100 mls/hr IVPB Q8H -IV [facility] Last Admin: 01/27/17 17:40 Dose: 100 mls/hr Aztreonam 0.5 gm/ Dextrose 50 mls @ 100 mls/hr IVPB Q8H-IV [facility] PRN Reason: Protocol Last Admin: 01/27/17 17:40 Dose: 100 mls/hr Levothyroxine Sodium (Synthroid -) 50 mcg PO 0630 [facility] Last Admin: 01/27/17 06:01 Dose: 50 mcg Polyethylene Glycol (Miralax (For Daily Use) -) 17 gm PO DAILY [facility] Last Admin: 01/27/17 12:59 Dose: Not Given Quetiapine Fumarate (Seroquel -) 25 mg PO BID [facility] Last Admin: 01/27/17 10:00 Dose: 25 mg Warfarin Sodium (Coumadin -) 5 mg PO DAILY@1800 [facility] Last Admin: 01/27/17 17:38 Dose: Not Given - Objective Vital Signs: Vital Signs Temperature 97.8 F 01/27/17 15:14 Pulse Rate 67 01/27/17 15:14 Respiratory Rate 20 01/27/17 15:14 Blood Pressure 95/62 01/27/17 15:14 O2 Sat by Pulse Oximetry (%) 95 01/26/17 21:00 Constitutional: Yes: Calm HENT: Yes: Atraumatic Neck: Yes: Supple Cardiovascular: Yes: Regular Rate and Rhythm Respiratory: Yes: CTA Bilaterally Gastrointestinal: Yes: Normal Bowel Sounds Extremities: Yes: WNL Neurological: Yes: Alert, Oriented Labs: CBC, BMP 01/27/17 06:00 01/27/17 06:00 INR, PTT INR 3.31 (0.82-1.09) H 01/27/17 06:00 Problem List - Problems (1) Abscess Assessment/Plan: iv abx id on board Code(s): L02.91 - CUTANEOUS ABSCESS, UNSPECIFIED (2) Urinary tract infection Assessment/Plan: on meds uc p Code(s): N39.0 - URINARY TRACT INFECTION, SITE NOT SPECIFIED Qualifiers: Urinary tract infection type: site unspecified Hematuria presence: with hematuria Qualified Code(s): N39.0 - Urinary tract infection, site not specified; N39.0 - Urinary tract infection, site not specified; R31.9 - Hematuria, unspecified; R31.9 - Hematuria, unspecified (3) BOYD (acute kidney injury) Code(s): N17.9 - ACUTE KIDNEY FAILURE, UNSPECIFIED
[2017-01-27] MEDS ORDERED: PT OWN MED DRAWER 7, Y5N ONE (18:10)
[2017-01-28] MEDS: AZTREONAM 0.5 GM in DEXTROSE 5%-WATER - 50 ML IVPB SCH ×3 (01:31→17:58)
[2017-01-28] MEDS: ALPRAZolam 0.25 MG TABLET PO PRN (01:56)
[2017-01-28] MEDS: CLINDAMYCIN 300 MG PREMIX IVPB 50 ML IVPB SCH ×3 (02:44→17:58)
[2017-01-28] MEDS: LEVOTHYROXINE NA 50 MCG TABLET (FP) PO SCH (06:27)
[2017-01-28 07:53] LABS: PROTHROMBIN TIME (PATIENT) 49.7 SEC (9.98-11.88)
[2017-01-28 08:46] LABS: INR 4.4 (0.82-1.09)
[2017-01-28 08:49] LABS: ANION GAP 9 (8-16); CALCIUM 7.4 mg/dL (8.5-10.1); CO2 27 mmol/L (21-32); CREATININE 3.5 mg/dL (0.55-1.02); GLUCOSE,RANDOM 63 mg/dL (74-106)
[2017-01-28] MEDS: QUEtiapine FUMARATE 25 MG TABLET (FP) PO SCH ×2 (10:34→22:15)
[2017-01-28] MEDS: POLYETHYLENE GLYCOL 3350 119 GM BTL PO SCH (10:35)
--- NOTE | 2017-01-28 14:49 | PN ---
Progress Note, Physician History of Present Illness: Pt seen and examined at bedside. She remains confused. - Current Medication List Current Medications: Active Medications Acetaminophen (Tylenol -) 325 mg PO Q6H PRN PRN Reason: FEVER OR PAIN Last Admin: 01/26/17 08:58 Dose: 325 mg Alprazolam (Xanax -) 0.25 mg PO Q6H PRN PRN Reason: ANXIETY Last Admin: 01/28/17 01:56 Dose: 0.25 mg Bisacodyl (Dulcolax Suppository -) 10 mg RC DAILY PRN PRN Reason: CONSTIPATION Hydromorphone HCl (Dilaudid -) 4 mg PO Q6H PRN Last Admin: 01/28/17 10:33 Dose: 4 mg Clindamycin Phosphate (Cleocin 300 Mg Premix Ivpb) 50 mls @ 100 mls/hr IVPB Q8H -IV [facility] Last Admin: 01/28/17 10:35 Dose: 100 mls/hr Aztreonam 0.5 gm/ Dextrose 50 mls @ 100 mls/hr IVPB Q8H-IV [facility] PRN Reason: Protocol Last Admin: 01/28/17 12:10 Dose: 100 mls/hr Levothyroxine Sodium (Synthroid -) 50 mcg PO 0630 [facility] Last Admin: 01/28/17 06:27 Dose: 50 mcg Polyethylene Glycol (Miralax (For Daily Use) -) 17 gm PO DAILY [facility] Last Admin: 01/28/17 10:35 Dose: Not Given Quetiapine Fumarate (Seroquel -) 25 mg PO BID [facility] Last Admin: 01/28/17 10:34 Dose: 25 mg Warfarin Sodium (Coumadin -) 5 mg PO DAILY@1800 [facility] Last Admin: 01/27/17 17:38 Dose: Not Given - Objective Vital Signs: Vital Signs Temperature 98.1 F 01/28/17 14:02 Pulse Rate 68 01/28/17 14:02 Respiratory Rate 18 01/28/17 14:02 Blood Pressure 118/71 01/28/17 05:57 O2 Sat by Pulse Oximetry (%) 96 01/27/17 21:00 Constitutional: Yes: Calm Eyes: Yes: Conjunctiva Clear HENT: Yes: Atraumatic Neck: Yes: Supple Cardiovascular: Yes: S1, S2 Respiratory: Yes: CTA Bilaterally Gastrointestinal: Yes: Normal Bowel Sounds, Soft Genitourinary: Yes: Incontinence Edema: No Wound/Incision: Yes: Dressing Dry and Intact Neurological: Yes: Confusion Labs: CBC, BMP 01/27/17 06:00 01/28/17 06:25 INR, PTT INR 4.40 (0.82-1.09) H* D 01/28/17 06:00 Problem List - Problems (1) Abscess Code(s): L02.91 - CUTANEOUS ABSCESS, UNSPECIFIED (2) BOYD (acute kidney injury) Code(s): N17.9 - ACUTE KIDNEY FAILURE, UNSPECIFIED (3) Hyperkalemia Code(s): E87.5 - HYPERKALEMIA Assessment/Plan Current Medications Generic Name Dose Route Start Last Admin Trade Name Freq PRN Reason Stop Dose Admin Acetaminophen 325 mg 01/25/17 18:09 01/26/17 08:58 Tylenol - PO 325 mg Q6H PRN Administration FEVER OR PAIN Alprazolam 0.25 mg 01/25/17 18:09 01/28/17 01:56 Xanax - PO 0.25 mg Q6H PRN Administration ANXIETY Bisacodyl 10 mg 01/25/17 18:09 Dulcolax Suppository - RC DAILY PRN CONSTIPATION Hydromorphone HCl 4 mg 01/26/17 20:24 01/28/17 10:33 Dilaudid - PO 4 mg Q6H PRN Administration Clindamycin Phosphate 50 mls @ 100 mls/hr 01/26/17 16:15 01/28/17 10:35 Cleocin 300 Mg Premix Ivpb IVPB 100 mls/hr Q8H-IV [facility] Administration Aztreonam 0.5 gm/ Dextrose 50 mls @ 100 mls/hr 01/27/17 18:00 01/28/17 12:10 IVPB 100 mls/hr Q8H-IV [facility] Administration Protocol Levothyroxine Sodium 50 mcg 01/26/17 06:30 01/28/17 06:27 Synthroid - PO 50 mcg 0630 [facility] Administration Polyethylene Glycol 17 gm 01/26/17 10:00 01/28/17 10:35 Miralax (For Daily Use) - PO Not Given DAILY [facility] Quetiapine Fumarate 25 mg 01/25/17 22:00 10/26/17 10:34 Seroquel - PO 25 mg BID [facility] Administration Warfarin Sodium 5 mg 01/26/17 18:00 01/27/17 17:38 Coumadin - PO Not Given DAILY@1800 [facility] 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 hyperkalemia resolved 3. anemia 4. hypothyroidism 5. leg abscess 6. UTI 7. CKD Plan - cont current fluids - repeat labs in am - awaiting labs to be faxed over from outside facility - likely ckd - monitor hg - will follow Dr Cat
--- NOTE | 2017-01-28 15:25 | PN ---
Progress Note, Physician History of Present Illness: awake and alert no distress - Current Medication List Current Medications: Active Medications Acetaminophen (Tylenol -) 325 mg PO Q6H PRN PRN Reason: FEVER OR PAIN Last Admin: 01/26/17 08:58 Dose: 325 mg Alprazolam (Xanax -) 0.25 mg PO Q6H PRN PRN Reason: ANXIETY Last Admin: 01/28/17 01:56 Dose: 0.25 mg Bisacodyl (Dulcolax Suppository -) 10 mg RC DAILY PRN PRN Reason: CONSTIPATION Hydromorphone HCl (Dilaudid -) 4 mg PO Q6H PRN Last Admin: 01/28/17 10:33 Dose: 4 mg Clindamycin Phosphate (Cleocin 300 Mg Premix Ivpb) 50 mls @ 100 mls/hr IVPB Q8H -IV [facility] Last Admin: 01/28/17 10:35 Dose: 100 mls/hr Aztreonam 0.5 gm/ Dextrose 50 mls @ 100 mls/hr IVPB Q8H-IV [facility] PRN Reason: Protocol Last Admin: 01/28/17 12:10 Dose: 100 mls/hr Levothyroxine Sodium (Synthroid -) 50 mcg PO 0630 [facility] Last Admin: 01/28/17 06:27 Dose: 50 mcg Polyethylene Glycol (Miralax (For Daily Use) -) 17 gm PO DAILY [facility] Last Admin: 01/28/17 10:35 Dose: Not Given Quetiapine Fumarate (Seroquel -) 25 mg PO BID [facility] Last Admin: 01/28/17 10:34 Dose: 25 mg Warfarin Sodium (Coumadin -) 5 mg PO DAILY@1800 [facility] Last Admin: 01/27/17 17:38 Dose: Not Given - Objective Vital Signs: Vital Signs Temperature 98.1 F 01/28/17 14:02 Pulse Rate 68 01/28/17 14:02 Respiratory Rate 18 01/28/17 14:02 Blood Pressure 118/49 01/28/17 10:00 O2 Sat by Pulse Oximetry (%) 94 L 01/28/17 10:00 Constitutional: Yes: No Distress, Calm Cardiovascular: Yes: Regular Rate and Rhythm Respiratory: Yes: Regular, CTA Bilaterally Gastrointestinal: Yes: Normal Bowel Sounds, Soft Musculoskeletal: Yes: Other Extremities: Yes: Other Wound/Incision: Yes: Draining, Other (dressing preent) Neurological: Yes: Alert, Other (dementia) Psychiatric: Yes: Alert, Other Labs: CBC, BMP 01/27/17 06:00 01/28/17 06:25 INR, PTT INR 4.40 (0.82-1.09) H* D 01/28/17 06:00 Assessment/Plan Problem List - Problems (1) Abscess Code(s): L02.91 - CUTANEOUS ABSCESS, UNSPECIFIED (2) Urinary tract infection Code(s): N39.0 - URINARY TRACT INFECTION, SITE NOT SPECIFIED Qualifiers: Urinary tract infection type: site unspecified Hematuria presence: with hematuria Qualified Code(s): N39.0 - Urinary tract infection, site not specified; N39.0 - Urinary tract infection, site not specified; R31.9 - Hematuria, unspecified; R31.9 - Hematuria, unspecified plan continue abx awaiting for sensitivites wound care rest as per primary
[2017-01-28] MEDS: WARFARIN NA 5 MG TABLET (UD) PO SCH (17:56)
--- NOTE | 2017-01-28 19:46 | PN ---
Progress Note, Physician History of Present Illness: stable - Current Medication List Current Medications: Active Medications Acetaminophen (Tylenol -) 325 mg PO Q6H PRN PRN Reason: FEVER OR PAIN Last Admin: 01/26/17 08:58 Dose: 325 mg Bisacodyl (Dulcolax Suppository -) 10 mg RC DAILY PRN PRN Reason: CONSTIPATION Gabapentin (Neurontin Oral Liquid -) 100 mg PO TID [facility] Hydromorphone HCl (Dilaudid -) 4 mg PO Q6H PRN Last Admin: 01/28/17 10:33 Dose: 4 mg Clindamycin Phosphate (Cleocin 300 Mg Premix Ivpb) 50 mls @ 100 mls/hr IVPB Q8H -IV [facility] Last Admin: 01/28/17 17:58 Dose: 100 mls/hr Aztreonam 0.5 gm/ Dextrose 50 mls @ 100 mls/hr IVPB Q8H-IV [facility] PRN Reason: Protocol Last Admin: 01/28/17 17:58 Dose: 100 mls/hr Levothyroxine Sodium (Synthroid -) 50 mcg PO 0630 [facility] Last Admin: 01/28/17 06:27 Dose: 50 mcg Nystatin (Nystatin Oral Suspension -) 500,000 units PO Q6HPO [facility] Polyethylene Glycol (Miralax (For Daily Use) -) 17 gm PO DAILY [facility] Last Admin: 01/28/17 10:35 Dose: Not Given Quetiapine Fumarate (Seroquel -) 25 mg PO BID [facility] Last Admin: 01/28/17 10:34 Dose: 25 mg Warfarin Sodium (Coumadin -) 5 mg PO DAILY@1800 [facility] Last Admin: 01/28/17 17:56 Dose: Not Given - Objective Vital Signs: Vital Signs Temperature 98.0 F 01/28/17 17:02 Pulse Rate 69 01/28/17 17:02 Respiratory Rate 18 01/28/17 17:02 Blood Pressure 104/76 01/28/17 17:02 O2 Sat by Pulse Oximetry (%) 94 L 01/28/17 10:00 Constitutional: Yes: No Distress HENT: Yes: Atraumatic, Other (ORAL THRUSH) Neck: Yes: Supple Cardiovascular: Yes: Regular Rate and Rhythm Respiratory: Yes: CTA Bilaterally Gastrointestinal: Yes: Normal Bowel Sounds Extremities: Yes: WNL Neurological: Yes: Alert, Oriented Labs: CBC, BMP 01/27/17 06:00 01/28/17 06:25 INR, PTT INR 4.40 (0.82-1.09) H* D 01/28/17 06:00 Problem List - Problems (1) Abscess Assessment/Plan: iv abx id on board Code(s): L02.91 - CUTANEOUS ABSCESS, UNSPECIFIED (2) Urinary tract infection Assessment/Plan: on meds uc p Code(s): N39.0 - URINARY TRACT INFECTION, SITE NOT SPECIFIED Qualifiers: Urinary tract infection type: site unspecified Hematuria presence: with hematuria Qualified Code(s): N39.0 - Urinary tract infection, site not specified; N39.0 - Urinary tract infection, site not specified; R31.9 - Hematuria, unspecified; R31.9 - Hematuria, unspecified (3) BOYD (acute kidney injury) Assessment/Plan: MILD HYDRATION PROBABLY CKD NEPHRO ON BOARD Code(s): N17.9 - ACUTE KIDNEY FAILURE, UNSPECIFIED (4) Thrush, oral Assessment/Plan: [place] SWISH AND SWALLOW Code(s): B37.0 - CANDIDAL STOMATITIS (5) DVT (deep venous thrombosis) Assessment/Plan: h/o dvt at previous hosp...[facility] on coumadin inr high today will hold cut down to 3 mg po daily Code(s): I82.409 - ACUTE EMBOLISM AND THOMBOS UNSP DEEP VN UNSP LOWER EXTREMITY
[2017-01-28] MEDS ORDERED: GABAPENTIN 100 MG CAPSULE (FP) PO SCH ×2 (22:00)
[2017-01-29] MEDS: NYSTATIN 500,000 UNITS/5 ML SUSPENSION PO SCH ×4 (01:04→18:14)
[2017-01-29] MEDS: AZTREONAM 0.5 GM in DEXTROSE 5%-WATER - 50 ML IVPB SCH ×3 (01:05→18:14)
[2017-01-29] MEDS: CLINDAMYCIN 300 MG PREMIX IVPB 50 ML IVPB SCH ×3 (01:52→18:14)
[2017-01-29] MEDS: LEVOTHYROXINE NA 50 MCG TABLET (FP) PO SCH (05:47)
[2017-01-29 08:10] LABS: BASOPHIL 0.3 % (0-2.0); EOSINOPHIL 3.4 % (0-4.5); MCH 28.5 pg (25.7-33.7); MCHC 33.4 g/dl (32.0-36.0); MEAN CELL VOLUME 85.6 fl (80-96); MEAN PLT VOLUME 9.4 fl (7.5-11.1); NEUTROPHILS 60.5 % (42.8-82.8); PLATELET COUNT 371 K/MM3 (134-434); RDW 17.6 % (11.6-15.6)
[2017-01-29 08:20] LABS: INR 3.06 (0.82-1.09); PROTHROMBIN TIME (PATIENT) 34.6 SEC (9.98-11.88)
[2017-01-29 08:41] LABS: ANION GAP 6 (8-16); CALCIUM 7.7 mg/dL (8.5-10.1); CO2 30 mmol/L (21-32); CREATININE 3.6 mg/dL (0.55-1.02); GLUCOSE,RANDOM 83 mg/dL (74-106)
[2017-01-29] MEDS: POLYETHYLENE GLYCOL 3350 119 GM BTL PO SCH (10:46)
[2017-01-29] MEDS: QUEtiapine FUMARATE 25 MG TABLET (FP) PO SCH ×2 (10:47→21:07)
--- NOTE | 2017-01-29 14:05 | PN ---
Progress Note, Physician History of Present Illness: awake and alert no distress - Current Medication List Current Medications: Active Medications Acetaminophen (Tylenol -) 325 mg PO Q6H PRN PRN Reason: FEVER OR PAIN Last Admin: 01/26/17 08:58 Dose: 325 mg Bisacodyl (Dulcolax Suppository -) 10 mg RC DAILY PRN PRN Reason: CONSTIPATION Hydromorphone HCl (Dilaudid -) 4 mg PO Q6H PRN Last Admin: 01/28/17 10:33 Dose: 4 mg Clindamycin Phosphate (Cleocin 300 Mg Premix Ivpb) 50 mls @ 100 mls/hr IVPB Q8H -IV [facility] Last Admin: 01/29/17 10:47 Dose: 100 mls/hr Aztreonam 0.5 gm/ Dextrose 50 mls @ 100 mls/hr IVPB Q8H-IV [facility] PRN Reason: Protocol Last Admin: 01/29/17 11:00 Dose: 100 mls/hr Levothyroxine Sodium (Synthroid -) 50 mcg PO 0630 [facility] Last Admin: 01/29/17 05:47 Dose: 50 mcg Nystatin (Nystatin Oral Suspension -) 500,000 units PO Q6HPO [facility] Last Admin: 01/29/17 12:45 Dose: 500,000 units Polyethylene Glycol (Miralax (For Daily Use) -) 17 gm PO DAILY [facility] Last Admin: 01/29/17 10:46 Dose: 17 gm Quetiapine Fumarate (Seroquel -) 25 mg PO BID [facility] Last Admin: 01/29/17 10:47 Dose: 25 mg Warfarin Sodium (Coumadin -) 5 mg PO DAILY@1800 [facility] Last Admin: 01/28/17 17:56 Dose: Not Given - Objective Vital Signs: Vital Signs Temperature 97.5 F L 01/29/17 09:08 Pulse Rate 60 01/29/17 09:08 Respiratory Rate 18 01/29/17 09:08 Blood Pressure 98/64 01/29/17 09:08 O2 Sat by Pulse Oximetry (%) 96 01/29/17 09:00 Constitutional: Yes: No Distress, Calm Cardiovascular: Yes: Regular Rate and Rhythm Respiratory: Yes: Regular, CTA Bilaterally Gastrointestinal: Yes: Normal Bowel Sounds, Soft Musculoskeletal: Yes: Other Extremities: Yes: Other Wound/Incision: Yes: Other (wound looking better) Neurological: Yes: Alert, Other (dementia) Labs: CBC, BMP 01/29/17 06:30 01/29/17 06:30 INR, PTT INR 3.06 (0.82-1.09) H D 01/29/17 06:30 Assessment/Plan Problem List - Problems (1) Abscess Code(s): L02.91 - CUTANEOUS ABSCESS, UNSPECIFIED (2) Urinary tract infection Code(s): N39.0 - URINARY TRACT INFECTION, SITE NOT SPECIFIED Qualifiers: Urinary tract infection type: site unspecified Hematuria presence: with hematuria Qualified Code(s): N39.0 - Urinary tract infection, site not specified; N39.0 - Urinary tract infection, site not specified; R31.9 - Hematuria, unspecified; R31.9 - Hematuria, unspecified plan continue abx awaiting for sensitivites if wound looks good tomorrow will switch to oral abx
--- NOTE | 2017-01-29 14:13 | PN ---
Progress Note, Physician History of Present Illness: stable - Current Medication List Current Medications: Active Medications Acetaminophen (Tylenol -) 325 mg PO Q6H PRN PRN Reason: FEVER OR PAIN Last Admin: 01/26/17 08:58 Dose: 325 mg Bisacodyl (Dulcolax Suppository -) 10 mg RC DAILY PRN PRN Reason: CONSTIPATION Hydromorphone HCl (Dilaudid -) 4 mg PO Q6H PRN Last Admin: 01/28/17 10:33 Dose: 4 mg Clindamycin Phosphate (Cleocin 300 Mg Premix Ivpb) 50 mls @ 100 mls/hr IVPB Q8H -IV [facility] Last Admin: 01/29/17 10:47 Dose: 100 mls/hr Aztreonam 0.5 gm/ Dextrose 50 mls @ 100 mls/hr IVPB Q8H-IV [facility] PRN Reason: Protocol Last Admin: 01/29/17 11:00 Dose: 100 mls/hr Levothyroxine Sodium (Synthroid -) 50 mcg PO 0630 [facility] Last Admin: 01/29/17 05:47 Dose: 50 mcg Nystatin (Nystatin Oral Suspension -) 500,000 units PO Q6HPO [facility] Last Admin: 01/29/17 12:45 Dose: 500,000 units Polyethylene Glycol (Miralax (For Daily Use) -) 17 gm PO DAILY [facility] Last Admin: 01/29/17 10:46 Dose: 17 gm Quetiapine Fumarate (Seroquel -) 25 mg PO BID [facility] Last Admin: 01/29/17 10:47 Dose: 25 mg Warfarin Sodium (Coumadin -) 3 mg PO DAILY@1800 [facility] - Objective Vital Signs: Vital Signs Temperature 97.5 F L 01/29/17 09:08 Pulse Rate 60 01/29/17 09:08 Respiratory Rate 18 01/29/17 09:08 Blood Pressure 98/64 01/29/17 09:08 O2 Sat by Pulse Oximetry (%) 96 01/29/17 09:00 Constitutional: Yes: No Distress HENT: Yes: Atraumatic Neck: Yes: Supple Cardiovascular: Yes: Regular Rate and Rhythm Respiratory: Yes: CTA Bilaterally Gastrointestinal: Yes: Normal Bowel Sounds Extremities: Yes: WNL Neurological: Yes: Alert Labs: CBC, BMP 01/29/17 06:30 01/29/17 06:30 INR, PTT INR 3.06 (0.82-1.09) H D 01/29/17 06:30 Problem List - Problems (1) Abscess Assessment/Plan: iv abx id on board Code(s): L02.91 - CUTANEOUS ABSCESS, UNSPECIFIED (2) Urinary tract infection Assessment/Plan: on meds uc p Code(s): N39.0 - URINARY TRACT INFECTION, SITE NOT SPECIFIED Qualifiers: Urinary tract infection type: site unspecified Hematuria presence: with hematuria Qualified Code(s): N39.0 - Urinary tract infection, site not specified; N39.0 - Urinary tract infection, site not specified; R31.9 - Hematuria, unspecified; R31.9 - Hematuria, unspecified (3) BOYD (acute kidney injury) Assessment/Plan: MILD HYDRATION PROBABLY CKD NEPHRO ON BOARD Code(s): N17.9 - ACUTE KIDNEY FAILURE, UNSPECIFIED (4) Thrush, oral Assessment/Plan: [place]STAT[place] SWISH AND SWALLOW Code(s): B37.0 - CANDIDAL STOMATITIS (5) DVT (deep venous thrombosis) Assessment/Plan: h/o dvt at previous hosp...[facility] on coumadin inr high today will hold cut down to 3 mg po daily Code(s): I82.409 - ACUTE EMBOLISM AND THOMBOS UNSP DEEP VN UNSP LOWER EXTREMITY Assessment/Plan d/w with son and daughter last night we need records also need to know why te[place]ol stopped [place] have checked tegretol level will get ct abdomen and pelvis as pt was anemeic on coumadin and per family was not anemic before although she had renal failure at [facility] where she stayed almost 2 weeks and dc to [facility] and was at [facility] only few days and came to [facility]
--- NOTE | 2017-01-29 15:46 | PN ---
Progress Note, Physician History of Present Illness: Pt seen and examined at bedside. She is awake and appears comfortable. She is confused. - Current Medication List Current Medications: Active Medications Acetaminophen (Tylenol -) 325 mg PO Q6H PRN PRN Reason: FEVER OR PAIN Last Admin: 01/26/17 08:58 Dose: 325 mg Bisacodyl (Dulcolax Suppository -) 10 mg RC DAILY PRN PRN Reason: CONSTIPATION Hydromorphone HCl (Dilaudid -) 4 mg PO Q6H PRN Last Admin: 01/28/17 10:33 Dose: 4 mg Clindamycin Phosphate (Cleocin 300 Mg Premix Ivpb) 50 mls @ 100 mls/hr IVPB Q8H -IV [facility] Last Admin: 01/29/17 10:47 Dose: 100 mls/hr Aztreonam 0.5 gm/ Dextrose 50 mls @ 100 mls/hr IVPB Q8H-IV [facility] PRN Reason: Protocol Last Admin: 01/29/17 11:00 Dose: 100 mls/hr Levothyroxine Sodium (Synthroid -) 50 mcg PO 0630 [facility] Last Admin: 01/29/17 05:47 Dose: 50 mcg Nystatin (Nystatin Oral Suspension -) 500,000 units PO Q6HPO [facility] Last Admin: 01/29/17 12:45 Dose: 500,000 units Polyethylene Glycol (Miralax (For Daily Use) -) 17 gm PO DAILY [facility] Last Admin: 01/29/17 10:46 Dose: 17 gm Quetiapine Fumarate (Seroquel -) 25 mg PO BID [facility] Last Admin: 01/29/17 10:47 Dose: 25 mg Warfarin Sodium (Coumadin -) 3 mg PO DAILY@1800 [facility] - Objective Vital Signs: Vital Signs Temperature 98.3 F 01/29/17 14:29 Pulse Rate 65 01/29/17 14:29 Respiratory Rate 18 01/29/17 14:29 Blood Pressure 95/70 01/29/17 14:29 O2 Sat by Pulse Oximetry (%) 96 01/29/17 09:00 Constitutional: Yes: Calm Eyes: Yes: Conjunctiva Clear HENT: Yes: Atraumatic Neck: Yes: Supple Cardiovascular: Yes: S1, S2 Gastrointestinal: Yes: Soft Genitourinary: Yes: Incontinence Musculoskeletal: Yes: Muscle Weakness Edema: No Neurological: Yes: Confusion Labs: CBC, BMP 01/29/17 06:30 01/29/17 06:30 INR, PTT INR 3.06 (0.82-1.09) H D 01/29/17 06:30 Problem List - Problems (1) Abscess Code(s): L02.91 - CUTANEOUS ABSCESS, UNSPECIFIED (2) BOYD (acute kidney injury) Code(s): N17.9 - ACUTE KIDNEY FAILURE, UNSPECIFIED (3) Hyperkalemia Code(s): E87.5 - HYPERKALEMIA Assessment/Plan Current Medications Generic Name Dose Route Start Last Admin Trade Name Freq PRN Reason Stop Dose Admin Acetaminophen 325 mg 01/25/17 18:09 01/26/17 08:58 Tylenol - PO 325 mg Q6H PRN Administration FEVER OR PAIN Bisacodyl 10 mg 01/25/17 18:09 Dulcolax Suppository - RC DAILY PRN CONSTIPATION Hydromorphone HCl 4 mg 01/26/17 20:24 01/28/17 10:33 Dilaudid - PO 4 mg Q6H PRN Administration Clindamycin Phosphate 50 mls @ 100 mls/hr 01/26/17 16:15 01/29/17 10:47 Cleocin 300 Mg Premix Ivpb IVPB 100 mls/hr Q8H-IV [facility] Administration Aztreonam 0.5 gm/ Dextrose 50 mls @ 100 mls/hr 01/27/17 18:00 01/29/17 11:00 IVPB 100 mls/hr Q8H-IV [facility] Administration Protocol Levothyroxine Sodium 50 mcg 01/26/17 06:30 01/29/17 05:47 Synthroid - PO 50 mcg 0630 [facility] Administration Nystatin 500,000 units 01/29/17 00:00 01/29/17 12:45 Nystatin Oral Suspension - PO 500,000 units Q6HPO [facility] Administration Polyethylene Glycol 17 gm 01/26/17 10:00 01/29/17 10:46 Miralax (For Daily Use) - PO 17 gm DAILY [facility] Administration Quetiapine Fumarate 25 mg 01/25/17 22:00 01/29/17 10:47 Seroquel - PO 25 mg BID [facility] Administration Warfarin Sodium 3 mg 01/29/17 18:00 Coumadin - PO DAILY@1800 [facility] 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 CKD 2. hyperkalemia resolved 3. anemia 4. hypothyroidism 5. leg abscess 6. UTI Plan - fluids stopped - anemia workup - will order ckd workup - awaiting chart from outside facility - pt has ckd per family - monitor hg - will follow Dr Cat
[2017-01-29] MEDS: WARFARIN NA 3 MG TABLET PO SCH (18:14)
--- NOTE | 2017-01-29 22:17 | CONSULT ---
Consult - text type - Consultation Consultation Note: Pt is a 76 year old female with pmhx of dementia and hypothyroidism who was sent in from the [place] for a left lower ext abscess/cellulitis. She is unable to give history secondary to dementia. She denies fevers or chills. She denies shortness of breath. she is confused and not a reliable historian. She was also found to be anemic. 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 Endocrine: Yes: Hypothyroidism h/o DVT - Smoking History Smoking history: Unknown if ever smoked - Allergies Allergies/Adverse Reactions: Allergies Allergy/AdvReac Type Severity Reaction Status Date / Time Penicillins Allergy Verified 01/25/17 11:13 - Home Medications Home Medications: Ambulatory Orders Acetaminophen [Tylenol] 2 tab PO Q6H PRN 01/25/17 Alprazolam [Xanax] 0.25 mg PO Q6H PRN 01/25/17 Bisacodyl Suppository [Dulcolax Suppository -] 10 mg RC DAILY PRN 01/25/17 Cephalexin [Keflex] 500 mg PO BID 01/25/17 Citalopram Hydrobromide [Celexa -] 10 mg PO DAILY 01/25/17 Docusate Sodium [Move It Along] 100 mg PO BID 01/25/17 Gabapentin 300 mg PO BID 01/25/17 Hydromorphone HCl 4 mg PO BID 01/25/17 Hydromorphone HCl 4 mg PO Q6H PRN 01/25/17 Lactobacillus Acidophilus [Acidophilus] 100 mg PO BID 01/25/17 Levothyroxine Sodium [Levo-T] 50 mcg PO 0630 01/25/17 Magnesium Hydroxide [Milk of Magnesia] 1,200 mg PO DAILY PRN 01/25/17 Mirtazapine [Remeron -] 30 mg PO HS 01/25/17 Polyethylene Glycol 3350 [Miralax (For Bowel Prep) -] 17 gm PO DAILY 01/25/17 Quetiapine Fumarate [Seroquel -] 25 mg PO BID 01/25/17 Sennosides [Senokot] 2 tab PO HS 01/25/17 Warfarin Sodium [Coumadin] 5 mg PO DAILY 01/25/17 Family Disease History - Family Disease History Family History: Unable to Obtain Physical Exam Vital Signs: AFVSS Cardiovascular: Yes: S1, S2 Respiratory: Yes: CTA Bilaterally Renal/: Yes: Incontinence Musculoskeletal: Yes: Muscle Weakness Labs: LAbs/meds reviewed A/P 76 y/o patient with h/o dementia, 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 will need goals of care discussion with family.
[2017-01-30] MEDS: NYSTATIN 500,000 UNITS/5 ML SUSPENSION PO SCH ×4 (00:39→18:10)
[2017-01-30] MEDS ORDERED: PT OWN MED DRAWER 7, Y5N ONE ×2 (01:19→11:39)
[2017-01-30] MEDS: CLINDAMYCIN 300 MG PREMIX IVPB 50 ML IVPB SCH ×3 (01:40→18:14)
[2017-01-30] MEDS: AZTREONAM 0.5 GM in DEXTROSE 5%-WATER - 50 ML IVPB SCH ×3 (01:40→18:52)
[2017-01-30] MEDS: LEVOTHYROXINE NA 50 MCG TABLET (FP) PO SCH (06:18)
[2017-01-30 08:04] LABS: INR 2.49 (0.82-1.09); PROTHROMBIN TIME (PATIENT) 28.1 SEC (9.98-11.88)
[2017-01-30] MEDS: QUEtiapine FUMARATE 25 MG TABLET (FP) PO SCH ×2 (10:09→22:46)
[2017-01-30] MEDS: POLYETHYLENE GLYCOL 3350 119 GM BTL PO SCH (10:09)
--- NOTE | 2017-01-30 15:59 | PN ---
Progress Note, Physician History of Present Illness: Pt seen and examined. Records reviewed, events noted. Pt is alert, demented. No distress noted. - Current Medication List Current Medications: Active Medications Acetaminophen (Tylenol -) 325 mg PO Q6H PRN PRN Reason: FEVER OR PAIN Last Admin: 01/26/17 08:58 Dose: 325 mg Bisacodyl (Dulcolax Suppository -) 10 mg RC DAILY PRN PRN Reason: CONSTIPATION Clindamycin Phosphate (Cleocin 300 Mg Premix Ivpb) 50 mls @ 100 mls/hr IVPB Q8H -IV [facility] Last Admin: 01/30/17 12:01 Dose: 100 mls/hr Aztreonam 0.5 gm/ Dextrose 50 mls @ 100 mls/hr IVPB Q8H-IV [facility] PRN Reason: Protocol Last Admin: 01/30/17 01:40 Dose: 100 mls/hr Levothyroxine Sodium (Synthroid -) 50 mcg PO 0630 [facility] Last Admin: 01/30/17 06:18 Dose: 50 mcg Nystatin (Nystatin Oral Suspension -) 500,000 units PO Q6HPO [facility] Last Admin: 01/30/17 06:19 Dose: 500,000 units Polyethylene Glycol (Miralax (For Daily Use) -) 17 gm PO DAILY [facility] Last Admin: 01/29/17 10:46 Dose: 17 gm Quetiapine Fumarate (Seroquel -) 25 mg PO BID [facility] Last Admin: 01/29/17 21:07 Dose: 25 mg Warfarin Sodium (Coumadin -) 3 mg PO DAILY@1800 [facility] Last Admin: 01/29/17 18:14 Dose: 3 mg - Objective Vital Signs: Vital Signs Temperature 198.4 F H 01/30/17 10:00 Pulse Rate 64 01/30/17 10:00 Respiratory Rate 20 01/30/17 10:00 Blood Pressure 100/58 01/30/17 10:00 O2 Sat by Pulse Oximetry (%) 99 01/30/17 09:00 Constitutional: Yes: No Distress Cardiovascular: Yes: Regular Rate and Rhythm Respiratory: Yes: Regular Gastrointestinal: Yes: Normal Bowel Sounds, Soft Integumentary: Yes: Other (LLE mild edema, no erythema, no draining wound) Wound/Incision: Yes: Dressing Dry and Intact Labs: CBC, BMP 01/29/17 06:30 01/29/17 06:30 INR, PTT INR 2.49 (0.82-1.09) H 01/30/17 06:00 Microbiology 01/25/17 11:45 Blood Culture - Final Blood - Peripheral Venous NO GROWTH AFTER 5 DAYS INCUBATION 01/25/17 11:45 Blood Culture - Final Blood - Peripheral Venous NO GROWTH AFTER 5 DAYS INCUBATION wound culture: Pasturella multocida - scant growth Problem List - Problems (1) Abscess Code(s): L02.91 - CUTANEOUS ABSCESS, UNSPECIFIED (2) Cellulitis Code(s): L03.90 - CELLULITIS, UNSPECIFIED Assessment/Plan - d/c Aztreonam, switch to levaquin po - continue clindamycin for now continue wound care
--- NOTE | 2017-01-30 17:00 | PN ---
Progress Note, Physician History of Present Illness: stable - Current Medication List Current Medications: Active Medications Acetaminophen (Tylenol -) 325 mg PO Q6H PRN PRN Reason: FEVER OR PAIN Last Admin: 01/26/17 08:58 Dose: 325 mg Bisacodyl (Dulcolax Suppository -) 10 mg RC DAILY PRN PRN Reason: CONSTIPATION Clindamycin Phosphate (Cleocin 300 Mg Premix Ivpb) 50 mls @ 100 mls/hr IVPB Q8H -IV [facility] Last Admin: 01/30/17 12:01 Dose: 100 mls/hr Aztreonam 0.5 gm/ Dextrose 50 mls @ 100 mls/hr IVPB Q8H-IV [facility] PRN Reason: Protocol Last Admin: 01/30/17 01:40 Dose: 100 mls/hr Levothyroxine Sodium (Synthroid -) 50 mcg PO 0630 [facility] Last Admin: 01/30/17 06:18 Dose: 50 mcg Nystatin (Nystatin Oral Suspension -) 500,000 units PO Q6HPO [facility] Last Admin: 01/30/17 06:19 Dose: 500,000 units Polyethylene Glycol (Miralax (For Daily Use) -) 17 gm PO DAILY [facility] Last Admin: 01/29/17 10:46 Dose: 17 gm Quetiapine Fumarate (Seroquel -) 25 mg PO BID [facility] Last Admin: 01/29/17 21:07 Dose: 25 mg Warfarin Sodium (Coumadin -) 3 mg PO DAILY@1800 [facility] Last Admin: 01/29/17 18:14 Dose: 3 mg - Objective Vital Signs: Vital Signs Temperature 198.4 F H 01/30/17 10:00 Pulse Rate 64 01/30/17 10:00 Respiratory Rate 20 01/30/17 10:00 Blood Pressure 100/58 01/30/17 10:00 O2 Sat by Pulse Oximetry (%) 99 01/30/17 09:00 Constitutional: Yes: No Distress HENT: Yes: Atraumatic Neck: Yes: Supple Cardiovascular: Yes: Regular Rate and Rhythm Respiratory: Yes: CTA Bilaterally Gastrointestinal: Yes: Normal Bowel Sounds Extremities: Yes: Other (LLEX ABCESS LOWER CLAF IN THE BACK DRAINING YELLOW DISCHARGE) Labs: CBC, BMP 01/29/17 06:30 01/29/17 06:30 INR, PTT INR 2.49 (0.82-1.09) H 01/30/17 06:00 Problem List - Problems (1) Abscess Assessment/Plan: iv abx WOUND CARE AND DRESSING CHANGE HAS BEEN DONE DAILY SINCE ADMISSION Code(s): L02.91 - CUTANEOUS ABSCESS, UNSPECIFIED (2) Urinary tract infection Assessment/Plan: on meds uc SEEN Code(s): N39.0 - URINARY TRACT INFECTION, SITE NOT SPECIFIED Qualifiers: Urinary tract infection type: site unspecified Hematuria presence: with hematuria Qualified Code(s): N39.0 - Urinary tract infection, site not specified; N39.0 - Urinary tract infection, site not specified; R31.9 - Hematuria, unspecified; R31.9 - Hematuria, unspecified (3) BOYD (acute kidney injury) Assessment/Plan: CR NOT IMPROVING PROBABLY CKD NEPHRO CONSULT Code(s): N17.9 - ACUTE KIDNEY FAILURE, UNSPECIFIED (4) Thrush, oral Code(s): B37.0 - CANDIDAL STOMATITIS (5) DVT (deep venous thrombosis) Assessment/Plan: h/o dvt at previous hosp...[facility] pres[facility] on coumadin inr high today will hold cut down to 3 mg po daily Code(s): I82.409 - ACUTE EMBOLISM AND THOMBOS UNSP DEEP VN UNSP LOWER EXTREMITY (6) Anemia Assessment/Plan: DONT KNOW CAUSE PROBABLY CKD [address] ABDOMEN AND PELVIS...NO BLEED Code(s): D64.9 - ANEMIA, UNSPECIFIED Assessment/Plan called [facility] records only open mon-fri 9-5 .
[2017-01-30] MEDS: WARFARIN NA 3 MG TABLET PO SCH (18:14)
[2017-01-31] MEDS ORDERED: PT OWN MED DRAWER 7, Y5N ONE (01:20)
[2017-01-31] MEDS: NYSTATIN 500,000 UNITS/5 ML SUSPENSION PO SCH ×4 (01:39→17:07)
[2017-01-31] MEDS: CLINDAMYCIN 300 MG PREMIX IVPB 50 ML IVPB SCH ×3 (01:59→17:07)
[2017-01-31] MEDS: AZTREONAM 0.5 GM in DEXTROSE 5%-WATER - 50 ML IVPB SCH ×3 (02:18→17:29)
[2017-01-31] MEDS: LEVOTHYROXINE NA 50 MCG TABLET (FP) PO SCH (05:43)
[2017-01-31 08:31] LABS: INR 2.27 (0.82-1.09); PROTHROMBIN TIME (PATIENT) 25.7 SEC (9.98-11.88)
[2017-01-31] MEDS: POLYETHYLENE GLYCOL 3350 119 GM BTL PO SCH (09:41)
[2017-01-31] MEDS: QUEtiapine FUMARATE 25 MG TABLET (FP) PO SCH ×2 (09:41→22:21)
[2017-01-31] MEDS: ACETAMINOPHEN 325 MG TABLET (FP) PO PRN (09:50)
--- NOTE | 2017-01-31 15:14 | PN ---
Progress Note, Physician History of Present Illness: stable - Current Medication List Current Medications: Active Medications Acetaminophen (Tylenol -) 325 mg PO Q6H PRN PRN Reason: FEVER OR PAIN Last Admin: 01/31/17 09:50 Dose: 325 mg Bisacodyl (Dulcolax Suppository -) 10 mg RC DAILY PRN PRN Reason: CONSTIPATION Hydromorphone HCl (Dilaudid -) 4 mg PO Q6H PRN Last Admin: 01/31/17 11:05 Dose: 4 mg Clindamycin Phosphate (Cleocin 300 Mg Premix Ivpb) 50 mls @ 100 mls/hr IVPB Q8H -IV [facility] Last Admin: 01/31/17 09:41 Dose: 100 mls/hr Aztreonam 0.5 gm/ Dextrose 50 mls @ 100 mls/hr IVPB Q8H-IV [facility] PRN Reason: Protocol Last Admin: 01/31/17 09:41 Dose: 100 mls/hr Levothyroxine Sodium (Synthroid -) 50 mcg PO 0630 [facility] Last Admin: 01/31/17 05:43 Dose: 50 mcg Nystatin (Nystatin Oral Suspension -) 500,000 units PO Q6HPO [facility] Last Admin: 01/31/17 12:49 Dose: 500,000 units Polyethylene Glycol (Miralax (For Daily Use) -) 17 gm PO DAILY [facility] Last Admin: 01/31/17 09:41 Dose: 17 gm Quetiapine Fumarate (Seroquel -) 25 mg PO BID [facility] Last Admin: 01/31/17 09:41 Dose: 25 mg Warfarin Sodium (Coumadin -) 3 mg PO DAILY@1800 [facility] Last Admin: 01/30/17 18:14 Dose: 3 mg - Objective Vital Signs: Vital Signs Temperature 98.1 F 01/31/17 08:59 Pulse Rate 64 01/31/17 08:59 Respiratory Rate 18 01/31/17 08:59 Blood Pressure 110/83 01/31/17 08:59 O2 Sat by Pulse Oximetry (%) 96 01/31/17 09:00 Constitutional: Yes: No Distress HENT: Yes: Atraumatic Neck: Yes: Supple Cardiovascular: Yes: Regular Rate and Rhythm Respiratory: Yes: CTA Bilaterally Gastrointestinal: Yes: Normal Bowel Sounds Extremities: Yes: Other (abcess looking better left lower calf above ankle) Neurological: Yes: Alert Labs: CBC, BMP 01/29/17 06:30 01/29/17 06:30 INR, PTT INR 2.27 (0.82-1.09) H 01/31/17 06:05 Problem List - Problems (1) Abscess Assessment/Plan: iv abx WOUND CARE AND DRESSING CHANGE DAILY Code(s): L02.91 - CUTANEOUS ABSCESS, UNSPECIFIED (2) Urinary tract infection Assessment/Plan: on meds uc SEEN Code(s): N39.0 - URINARY TRACT INFECTION, SITE NOT SPECIFIED Qualifiers: Urinary tract infection type: site unspecified Hematuria presence: with hematuria Qualified Code(s): N39.0 - Urinary tract infection, site not specified; N39.0 - Urinary tract infection, site not specified; R31.9 - Hematuria, unspecified; R31.9 - Hematuria, unspecified (3) BOYD (acute kidney injury) Assessment/Plan: CR NOT IMPROVING PROBABLY CKD NEPHRO CONSULT Code(s): N17.9 - ACUTE KIDNEY FAILURE, UNSPECIFIED (4) Thrush, oral Assessment/Plan: [facility] Code(s): B37.0 - CANDIDAL STOMATITIS (5) DVT (deep venous thrombosis) Assessment/Plan: h/o dvt at previous hosp...[facility] presb on coumadin inr high today will hold cut down to 3 mg po daily Code(s): I82.409 - ACUTE EMBOLISM AND THOMBOS UNSP DEEP VN UNSP LOWER EXTREMITY (6) Anemia Assessment/Plan: DONT KNOW CAUSE STOOL NEGATIVE FOR OCCULT BLOOD PROBABLY CKD [address] ABDOMEN AND PELVIS...NO BLEED Code(s): D64.9 - ANEMIA, UNSPECIFIED Assessment/Plan called [facility] records only open mon-fri 9-5 .
[2017-01-31] MEDS: WARFARIN NA 3 MG TABLET PO SCH (17:29)
--- NOTE | 2017-01-31 18:35 | PN ---
Progress Note, Physician History of Present Illness: Pt remains stable Denies distress no new events - Current Medication List Current Medications: Active Medications Acetaminophen (Tylenol -) 325 mg PO Q6H PRN PRN Reason: FEVER OR PAIN Last Admin: 01/31/17 09:50 Dose: 325 mg Bisacodyl (Dulcolax Suppository -) 10 mg RC DAILY PRN PRN Reason: CONSTIPATION Clindamycin HCl (Cleocin -) 300 mg PO TID [facility] Hydromorphone HCl (Dilaudid -) 4 mg PO Q6H PRN Last Admin: 01/31/17 18:21 Dose: 4 mg Levothyroxine Sodium (Synthroid -) 50 mcg PO 0630 [facility] Last Admin: 01/31/17 05:43 Dose: 50 mcg Nystatin (Nystatin Oral Suspension -) 500,000 units PO Q6HPO [facility] Last Admin: 01/31/17 17:07 Dose: 500,000 units Polyethylene Glycol (Miralax (For Daily Use) -) 17 gm PO DAILY [facility] Last Admin: 01/31/17 09:41 Dose: 17 gm Quetiapine Fumarate (Seroquel -) 25 mg PO BID [facility] Last Admin: 01/31/17 09:41 Dose: 25 mg Warfarin Sodium (Coumadin -) 3 mg PO DAILY@1800 [facility] Last Admin: 01/31/17 17:29 Dose: 3 mg - Objective Vital Signs: Vital Signs Temperature 99 F 01/31/17 16:01 Pulse Rate 75 01/31/17 16:01 Respiratory Rate 14 01/31/17 16:01 Blood Pressure 93/48 01/31/17 16:01 O2 Sat by Pulse Oximetry (%) 96 01/31/17 09:00 Constitutional: Yes: No Distress Cardiovascular: Yes: Regular Rate and Rhythm Respiratory: Yes: Regular Gastrointestinal: Yes: Normal Bowel Sounds, Soft Wound/Incision: Yes: Other (Posterior LE wound clean/no purulence) Labs: CBC, BMP 01/29/17 06:30 01/29/17 06:30 INR, PTT INR 2.27 (0.82-1.09) H 01/31/17 06:05 Problem List - Problems (1) Abscess Code(s): L02.91 - CUTANEOUS ABSCESS, UNSPECIFIED (2) Cellulitis Code(s): L03.90 - CELLULITIS, UNSPECIFIED Assessment/Plan leg wound clean no LE erythema/warmth - switched to clindamycin po - continue wound care pt stable
[2017-01-31 18:59] LABS: INR 1.97 (0.82-1.09); PROTHROMBIN TIME (PATIENT) 22.3 SEC (9.98-11.88)
--- NOTE | 2017-01-31 19:34 | PN ---
Progress Note (short form) - Note Progress Note: Nephrology f/u 1. CKD 2. hyperkalemia resolved 3. anemia 4. hypothyroidism 5. leg abscess 6. UTI Current Medications Acetaminophen (Tylenol -) 325 mg PO Q6H PRN PRN Reason: FEVER OR PAIN Last Admin: 01/31/17 09:50 Dose: 325 mg Bisacodyl (Dulcolax Suppository -) 10 mg RC DAILY PRN PRN Reason: CONSTIPATION Clindamycin HCl (Cleocin -) 300 mg PO TID [facility] Hydromorphone HCl (Dilaudid -) 4 mg PO Q6H PRN Last Admin: 01/31/17 18:21 Dose: 4 mg Levothyroxine Sodium (Synthroid -) 50 mcg PO 0630 [facility] Last Admin: 01/31/17 05:43 Dose: 50 mcg Nystatin (Nystatin Oral Suspension -) 500,000 units PO Q6HPO [facility] Last Admin: 01/31/17 17:07 Dose: 500,000 units Polyethylene Glycol (Miralax (For Daily Use) -) 17 gm PO DAILY [facility] Last Admin: 01/31/17 09:41 Dose: 17 gm Quetiapine Fumarate (Seroquel -) 25 mg PO BID [facility] Last Admin: 01/31/17 09:41 Dose: 25 mg Warfarin Sodium (Coumadin -) 3 mg PO DAILY@1800 [facility] Last Admin: 01/31/17 17:29 Dose: 3 mg Last Vital Signs Temp Pulse Resp BP Pulse Ox 98.5 F 74 18 108/70 96 01/31/17 18:58 01/31/17 18:58 01/31/17 18:58 01/31/17 18:58 01/31/17 09:00 Lungs clear Heart reg Abd soft nontender Ext no edema CBC, BMP 01/29/17 06:30 01/29/17 06:30 IMP- CKD r/o acute component stable renal function this weekenf leg abscess Plan- update labs
[2017-01-31] MEDS: CLINDAMYCIN HCL 150 MG CAPSULE (FP) PO SCH (22:20)
[2017-02-01] MEDS: NYSTATIN 500,000 UNITS/5 ML SUSPENSION PO SCH ×4 (01:41→18:39)
[2017-02-01] MEDS: LEVOTHYROXINE NA 50 MCG TABLET (FP) PO SCH (06:10)
[2017-02-01] MEDS: CLINDAMYCIN HCL 150 MG CAPSULE (FP) PO SCH ×3 (06:10→22:38)
[2017-02-01 06:52] LABS: MCH 28.8 pg (25.7-33.7); MCHC 33.4 g/dl (32.0-36.0); MEAN CELL VOLUME 86.4 fl (80-96); MEAN PLT VOLUME 9.4 fl (7.5-11.1); PLATELET COUNT 311 K/MM3 (134-434); RDW 17.6 % (11.6-15.6)
[2017-02-01 06:56] LABS: ALBUMIN 2.1 g/dl (3.4-5.0); ALK PHOS 58 U/L (45-117); ANION GAP 10 (8-16); BILIRUBIN,TOTAL 0.4 mg/dL (0.2-1.0); CALCIUM 8.1 mg/dL (8.5-10.1); CO2 29 mmol/L (21-32); GLUCOSE,RANDOM 79 mg/dL (74-106); PHOSPHOROUS 4.1 mg/dL (2.5-4.9); SGOT/AST 14 U/L (15-37); SGPT/ALT 13 U/L (12-78)
[2017-02-01] MEDS: POLYETHYLENE GLYCOL 3350 119 GM BTL PO SCH (09:49)
[2017-02-01] MEDS: QUEtiapine FUMARATE 25 MG TABLET (FP) PO SCH ×2 (09:49→22:38)
[2017-02-01] MEDS ORDERED: DOXYCYCLINE HYCLATE 100 MG CAPSULE PO SCH (10:00)
--- NOTE | 2017-02-01 12:37 | PN ---
Progress Note, Physician History of Present Illness: awake and alert no distress wound clean - Current Medication List Current Medications: Active Medications Acetaminophen (Tylenol -) 325 mg PO Q6H PRN PRN Reason: FEVER OR PAIN Last Admin: 01/31/17 09:50 Dose: 325 mg Bisacodyl (Dulcolax Suppository -) 10 mg RC DAILY PRN PRN Reason: CONSTIPATION Last Admin: 02/01/17 09:50 Dose: 10 mg Clindamycin HCl (Cleocin -) 300 mg PO TID [facility] Last Admin: 02/01/17 06:10 Dose: 300 mg Hydromorphone HCl (Dilaudid -) 4 mg PO Q6H PRN Last Admin: 02/01/17 09:49 Dose: 4 mg Levothyroxine Sodium (Synthroid -) 50 mcg PO 0630 [facility] Last Admin: 02/01/17 06:10 Dose: 50 mcg Nystatin (Nystatin Oral Suspension -) 500,000 units PO Q6HPO [facility] Last Admin: 02/01/17 06:11 Dose: 500,000 units Polyethylene Glycol (Miralax (For Daily Use) -) 17 gm PO DAILY [facility] Last Admin: 02/01/17 09:49 Dose: 17 gm Quetiapine Fumarate (Seroquel -) 25 mg PO BID [facility] Last Admin: 02/01/17 09:49 Dose: 25 mg Warfarin Sodium (Coumadin -) 3 mg PO DAILY@1800 [facility] Last Admin: 01/31/17 17:29 Dose: 3 mg - Objective Vital Signs: Vital Signs Temperature 97.0 F L 02/01/17 08:42 Pulse Rate 73 02/01/17 08:42 Respiratory Rate 20 02/01/17 08:42 Blood Pressure 134/70 02/01/17 08:42 O2 Sat by Pulse Oximetry (%) 96 01/31/17 09:00 Constitutional: Yes: No Distress, Calm Cardiovascular: Yes: Regular Rate and Rhythm Respiratory: Yes: Regular, CTA Bilaterally Gastrointestinal: Yes: Normal Bowel Sounds, Soft Musculoskeletal: Yes: Other Extremities: Yes: Other Wound/Incision: Yes: Dressing Dry and Intact Neurological: Yes: Alert Psychiatric: Yes: Alert Labs: CBC, BMP 02/01/17 05:35 02/01/17 05:35 INR, PTT INR 1.97 (0.82-1.09) H 01/31/17 17:45 Assessment/Plan Problem List - Problems (1) Abscess Code(s): L02.91 - CUTANEOUS ABSCESS, UNSPECIFIED (2) Urinary tract infection Code(s): N39.0 - URINARY TRACT INFECTION, SITE NOT SPECIFIED Qualifiers: Urinary tract infection type: site unspecified Hematuria presence: with hematuria Qualified Code(s): N39.0 - Urinary tract infection, site not specified; N39.0 - Urinary tract infection, site not specified; R31.9 - Hematuria, unspecified; R31.9 - Hematuria, unspecified plan continue oral abx for another 5 more days wound care rest as per primary
--- NOTE | 2017-02-01 14:19 | PN ---
Progress Note, Physician History of Present Illness: Pt seen and examined at bedside. She is awake and restless today. - Current Medication List Current Medications: Active Medications Acetaminophen (Tylenol -) 325 mg PO Q6H PRN PRN Reason: FEVER OR PAIN Last Admin: 01/31/17 09:50 Dose: 325 mg Bisacodyl (Dulcolax Suppository -) 10 mg RC DAILY PRN PRN Reason: CONSTIPATION Last Admin: 02/01/17 09:50 Dose: 10 mg Clindamycin HCl (Cleocin -) 300 mg PO TID [facility] Last Admin: 02/01/17 13:57 Dose: 300 mg Hydromorphone HCl (Dilaudid -) 4 mg PO Q6H PRN Last Admin: 02/01/17 09:49 Dose: 4 mg Levothyroxine Sodium (Synthroid -) 50 mcg PO 0630 [facility] Last Admin: 02/01/17 06:10 Dose: 50 mcg Nystatin (Nystatin Oral Suspension -) 500,000 units PO Q6HPO [facility] Last Admin: 02/01/17 13:00 Dose: 500,000 units Polyethylene Glycol (Miralax (For Daily Use) -) 17 gm PO DAILY [facility] Last Admin: 02/01/17 09:49 Dose: 17 gm Quetiapine Fumarate (Seroquel -) 25 mg PO BID [facility] Last Admin: 02/01/17 09:49 Dose: 25 mg Warfarin Sodium (Coumadin -) 3 mg PO DAILY@1800 [facility] Last Admin: 01/31/17 17:29 Dose: 3 mg - Objective Vital Signs: Vital Signs Temperature 97.0 F L 02/01/17 08:42 Pulse Rate 73 02/01/17 08:42 Respiratory Rate 20 02/01/17 08:42 Blood Pressure 134/70 02/01/17 08:42 O2 Sat by Pulse Oximetry (%) 96 02/01/17 09:00 Constitutional: Yes: Anxious Eyes: Yes: Conjunctiva Clear HENT: Yes: Atraumatic Neck: Yes: Supple Cardiovascular: Yes: S1, S2 Respiratory: Yes: CTA Bilaterally Gastrointestinal: Yes: Soft Genitourinary: Yes: Incontinence Musculoskeletal: Yes: Muscle Weakness Edema: No Neurological: Yes: Confusion Labs: CBC, BMP 02/01/17 05:35 02/01/17 05:35 INR, PTT INR 1.97 (0.82-1.09) H 01/31/17 17:45 Problem List - Problems (1) Abscess Code(s): L02.91 - CUTANEOUS ABSCESS, UNSPECIFIED (2) BOYD (acute kidney injury) Code(s): N17.9 - ACUTE KIDNEY FAILURE, UNSPECIFIED (3) Hyperkalemia Code(s): E87.5 - HYPERKALEMIA Assessment/Plan Current Medications Generic Name Dose Route Start Last Admin Trade Name Freq PRN Reason Stop Dose Admin Acetaminophen 325 mg 01/25/17 18:09 01/31/17 09:50 Tylenol - PO 325 mg Q6H PRN Administration FEVER OR PAIN Bisacodyl 10 mg 01/25/17 18:09 02/01/17 09:50 Dulcolax Suppository - RC 10 mg DAILY PRN Administration CONSTIPATION Clindamycin HCl 300 mg 01/31/17 22:00 02/01/17 13:57 Cleocin - PO 300 mg TID SHAMEKA Administration Hydromorphone HCl 4 mg 01/31/17 10:46 02/01/17 09:49 Dilaudid - PO 4 mg Q6H PRN Administration Levothyroxine Sodium 50 mcg 01/26/17 06:30 02/01/17 06:10 Synthroid - PO 50 mcg 0630 SHAMEKA Administration Nystatin 500,000 units 01/29/17 00:00 02/01/17 13:00 Nystatin Oral Suspension - PO 500,000 units Q6HPO SHAMEKA Administration Polyethylene Glycol 17 gm 01/26/17 10:00 02/01/17 09:49 Miralax (For Daily Use) - PO 17 gm DAILY SHAMEKA Administration Quetiapine Fumarate 25 mg 01/25/17 22:00 02/01/17 09:49 Seroquel - PO 25 mg BID SHAMEKA Administration Warfarin Sodium 3 mg 01/29/17 18:00 01/31/17 17:29 Coumadin - PO 3 mg DAILY@1800 SHAMEKA Administration Laboratory Tests 01/30/17 01/30/17 02/01/17 06:00 06:00 05:35 Hgb 10.2 L Creatinine CORY M-Tim Pending LESIA Screen Pending c-ANCA Pending Proteinase 3 (PR3) Pending p-ANCA Pending Atypical p-ANCA Pending Myeloperoxidase Ab Pending Double Strand DNA Ab Pending Glomerular Base Memb Ab 5 Hepatitis A Ab Total Pending Hep Bs Antigen Pending Hep Bs Antibody Pending Hep B Core Total Ab Pending Hepatitis C Antibody 0.1 02/01/17 05:35 Hgb Creatinine 3.0 H CORY M-Tim LESIA Screen c-ANCA Proteinase 3 (PR3) p-ANCA Atypical p-ANCA Myeloperoxidase Ab Double Strand DNA Ab Glomerular Base Memb Ab Hepatitis A Ab Total Hep Bs Antigen Hep Bs Antibody Hep B Core Total Ab Hepatitis C Antibody 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 CKD 2. hyperkalemia resolved 3. anemia 4. hypothyroidism 5. leg abscess 6. UTI Plan - renal function is improved - workup is in progress - repeat labs in am - monitor hg - will follow Dr Cat
--- NOTE | 2017-02-01 15:07 | DS ---
Physical Examination Vital Signs: Vital Signs Temperature 98.9 F 02/01/17 14:56 Pulse Rate 84 02/01/17 14:56 Respiratory Rate 20 02/01/17 14:56 Blood Pressure 87/58 02/01/17 14:56 O2 Sat by Pulse Oximetry (%) 96 02/01/17 09:00 Constitutional: Yes: No Distress HENT: Yes: Atraumatic Neck: Yes: Supple Cardiovascular: Yes: Regular Rate and Rhythm Respiratory: Yes: CTA Bilaterally Gastrointestinal: Yes: Normal Bowel Sounds Extremities: Yes: Other (wound llex improving) Neurological: Yes: Alert, Oriented Labs: CBC, BMP 02/01/17 05:35 02/01/17 05:35 Discharge Summary Reason For Visit: UTI ABSCESS Current Active Problems BOYD (acute kidney injury) (Acute) Abscess (Acute) Anemia (Acute) Cellulitis (Acute) DVT (deep venous thrombosis) (Acute) Hyperkalemia (Acute) Thrush, oral (Acute) Urinary tract infection (Acute) Condition: Guarded - Home Medications Comprehensive Discharge Medication List: Ambulatory Orders Acetaminophen [Tylenol] 2 tab PO Q6H PRN 01/25/17 Alprazolam [Xanax] 0.25 mg PO Q6H PRN 01/25/17 Bisacodyl Suppository [Dulcolax Suppository -] 10 mg RC DAILY PRN 01/25/17 Cephalexin [Keflex] 500 mg PO BID 01/25/17 Citalopram Hydrobromide [Celexa -] 10 mg PO DAILY 01/25/17 Docusate Sodium [Move It Along] 100 mg PO BID 01/25/17 Gabapentin 300 mg PO BID 01/25/17 Hydromorphone HCl 4 mg PO BID 01/25/17 Hydromorphone HCl 4 mg PO Q6H PRN 01/25/17 Lactobacillus Acidophilus [Acidophilus] 100 mg PO BID 01/25/17 Levothyroxine Sodium [Levo-T] 50 mcg PO 0630 01/25/17 Magnesium Hydroxide [Milk of Magnesia] 1,200 mg PO DAILY PRN 01/25/17 Mirtazapine [Remeron -] 30 mg PO HS 01/25/17 Polyethylene Glycol 3350 [Miralax 255 gm Btl -] 17 gm PO DAILY 01/25/17 Quetiapine Fumarate [Seroquel -] 25 mg PO BID 01/25/17 Sennosides [Senokot] 2 tab PO HS 01/25/17 Warfarin Sodium [Coumadin] 5 mg PO DAILY 01/25/17 Clindamycin [Cleocin -] 300 mg PO Q6HPO #15 capsule 02/01/17 dc to snf
[2017-02-01] MEDS: WARFARIN NA 3 MG TABLET PO SCH (18:36)
[2017-02-01] MEDS ORDERED: WARFARIN NA 5 MG TABLET (UD) PO ONE (18:45)
[2017-02-01 19:25] LABS: INR 2.04 (0.82-1.09)
--- NOTE | 2017-02-01 22:57 | PN ---
Progress Note (short form) - Note Progress Note: Patient seen and examined confused denies any specific c/o Last Vital Signs Temp Pulse Resp BP Pulse Ox 97.5 F L 79 18 97/63 96 02/01/17 19:05 02/01/17 19:05 02/01/17 19:05 02/01/17 19:05 02/01/17 09:00 Cor: RSR, No murmurs, No gallops Lungs: Clear to P&A Abd: Soft, Normal bowel sounds, No organomegaly Ext:No significant edema Skin: No rashes, Integument intact Abnormal Lab Results 01/30/17 02/01/17 02/01/17 06:00 05:35 05:35 RBC 3.52 L Hgb 10.2 L Hct 30.4 L RDW 17.6 H PT with INR INR BUN 64 H Creatinine 3.0 H Calcium 8.1 L AST 14 L D Total Protein 6.0 L Albumin 2.3 L 2.1 L Globulin 4.0 H Albumin/Globulin Ratio 0.6 L [id number] 1.5 H Hepatitis A Ab Total Positive H 02/01/17 17:30 RBC Hgb Hct RDW PT with INR 23.00 H INR 2.04 H BUN Creatinine Calcium AST Total Protein Albumin Globulin Albumin/Globulin Ratio [id number] Hepatitis A Ab Total Active Medications Generic Name Dose Route Start Last Admin Trade Name Freq PRN Reason Stop Dose Admin Acetaminophen 325 mg 01/25/17 18:09 01/31/17 09:50 Tylenol - PO 325 mg Q6H PRN Administration FEVER OR PAIN Bisacodyl 10 mg 01/25/17 18:09 02/01/17 09:50 Dulcolax Suppository - RC 10 mg DAILY PRN Administration CONSTIPATION Clindamycin HCl 300 mg 01/31/17 22:00 02/01/17 22:38 Cleocin - PO 300 mg TID SHAMEKA Administration Hydromorphone HCl 4 mg 01/31/17 10:46 02/01/17 19:10 Dilaudid - PO 4 mg Q6H PRN Administration Levothyroxine Sodium 50 mcg 01/26/17 06:30 02/01/17 06:10 Synthroid - PO 50 mcg 0630 SHAMEKA Administration Nystatin 500,000 units 01/29/17 00:00 02/01/17 18:39 Nystatin Oral Suspension - PO 500,000 units Q6HPO SHAMEKA Administration Polyethylene Glycol 17 gm 01/26/17 10:00 02/01/17 09:49 Miralax (For Daily Use) - PO 17 gm DAILY SHAMEKA Administration Quetiapine Fumarate 25 mg 01/25/17 22:00 02/01/17 22:38 Seroquel - PO 25 mg BID SHAMEKA Administration A/P 76 y/o patient with h/o dementia, 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 will need goals of care discussion with family , given her overall dementia/ functional status
[2017-02-02 00:11] LABS: A/G RATIO 0.6 (0.7-1.7); ALBUMIN 2.3 g/dL (2.9-4.4); M-SPIKE Not Observed g/dL (Not Observed); TOTAL PROTEIN 6.3 g/dL (6.0-8.5)
[2017-02-02] MEDS: NYSTATIN 500,000 UNITS/5 ML SUSPENSION PO SCH ×4 (00:30→23:29)
[2017-02-02] MEDS: CLINDAMYCIN HCL 150 MG CAPSULE (FP) PO SCH ×3 (06:52→23:00)
[2017-02-02] MEDS: LEVOTHYROXINE NA 50 MCG TABLET (FP) PO SCH (06:52)
[2017-02-02 07:43] LABS: BASOPHIL 0.7 % (0-2.0); EOSINOPHIL 3.1 % (0-4.5); MCH 28.2 pg (25.7-33.7); MCHC 32.8 g/dl (32.0-36.0); MEAN CELL VOLUME 86.1 fl (80-96); MEAN PLT VOLUME 9.2 fl (7.5-11.1); NEUTROPHILS 73.2 % (42.8-82.8); PLATELET COUNT 313 K/MM3 (134-434); RDW 18.3 % (11.6-15.6); WHITE BLOOD COUNT 8.6 K/mm3 (4.0-10.0)
[2017-02-02 08:07] LABS: INR 2.16 (0.82-1.09); PROTHROMBIN TIME (PATIENT) 24.4 SEC (9.98-11.88)
[2017-02-02 08:20] LABS: ANION GAP 8 (8-16); CALCIUM 8.6 mg/dL (8.5-10.1); CO2 32 mmol/L (21-32); GLUCOSE,RANDOM 74 mg/dL (74-106)
[2017-02-02 08:22] LABS: CREATININE 2.9 mg/dL (0.55-1.02)
[2017-02-02] MEDS: QUEtiapine FUMARATE 25 MG TABLET (FP) PO SCH ×2 (10:44→23:00)
[2017-02-02] MEDS: POLYETHYLENE GLYCOL 3350 119 GM BTL PO SCH (11:30)
--- NOTE | 2017-02-02 14:03 | PN ---
Progress Note, Physician History of Present Illness: awake and alert no distress wound clean - Current Medication List Current Medications: Active Medications Acetaminophen (Tylenol -) 325 mg PO Q6H PRN PRN Reason: FEVER OR PAIN Last Admin: 01/31/17 09:50 Dose: 325 mg Bisacodyl (Dulcolax Suppository -) 10 mg RC DAILY PRN PRN Reason: CONSTIPATION Last Admin: 02/01/17 09:50 Dose: 10 mg Clindamycin HCl (Cleocin -) 300 mg PO TID [facility] Last Admin: 02/02/17 06:52 Dose: 300 mg Hydromorphone HCl (Dilaudid -) 4 mg PO Q6H PRN Last Admin: 02/01/17 19:10 Dose: 4 mg Levothyroxine Sodium (Synthroid -) 50 mcg PO 0630 [facility] Last Admin: 02/02/17 06:52 Dose: 50 mcg Nystatin (Nystatin Oral Suspension -) 500,000 units PO Q6HPO [facility] Last Admin: 02/02/17 06:52 Dose: 500,000 units Polyethylene Glycol (Miralax (For Daily Use) -) 17 gm PO DAILY [facility] Last Admin: 02/01/17 09:49 Dose: 17 gm Quetiapine Fumarate (Seroquel -) 25 mg PO BID [facility] Last Admin: 02/02/17 10:44 Dose: 25 mg - Objective Vital Signs: Vital Signs Temperature 97.1 F L 02/02/17 09:00 Pulse Rate 68 02/02/17 09:00 Respiratory Rate 16 02/02/17 09:00 Blood Pressure 82/53 02/02/17 09:00 O2 Sat by Pulse Oximetry (%) 98 02/02/17 09:00 Constitutional: Yes: No Distress, Calm Cardiovascular: Yes: Regular Rate and Rhythm Respiratory: Yes: Regular, CTA Bilaterally Gastrointestinal: Yes: Normal Bowel Sounds, Soft Musculoskeletal: Yes: WNL Extremities: Yes: Other Wound/Incision: Yes: Dressing Dry and Intact Neurological: Yes: Alert Labs: CBC, BMP 02/02/17 06:00 02/02/17 06:00 INR, PTT INR 2.16 (0.82-1.09) H 02/02/17 06:00 Assessment/Plan Problem List - Problems (1) Abscess Code(s): L02.91 - CUTANEOUS ABSCESS, UNSPECIFIED (2) Urinary tract infection Code(s): N39.0 - URINARY TRACT INFECTION, SITE NOT SPECIFIED Qualifiers: Urinary tract infection type: site unspecified Hematuria presence: with hematuria Qualified Code(s): N39.0 - Urinary tract infection, site not specified; N39.0 - Urinary tract infection, site not specified; R31.9 - Hematuria, unspecified; R31.9 - Hematuria, unspecified plan continue oral abx for another 4 more days wound care rest as per primary patient stable
--- NOTE | 2017-02-02 14:32 | PN ---
Progress Note, Physician History of Present Illness: Pt seen and examined at bedside. She remains confused. - Current Medication List Current Medications: Active Medications Acetaminophen (Tylenol -) 325 mg PO Q6H PRN PRN Reason: FEVER OR PAIN Last Admin: 01/31/17 09:50 Dose: 325 mg Bisacodyl (Dulcolax Suppository -) 10 mg RC DAILY PRN PRN Reason: CONSTIPATION Last Admin: 02/01/17 09:50 Dose: 10 mg Clindamycin HCl (Cleocin -) 300 mg PO TID [facility] Last Admin: 02/02/17 06:52 Dose: 300 mg Hydromorphone HCl (Dilaudid -) 4 mg PO Q6H PRN Last Admin: 02/01/17 19:10 Dose: 4 mg Levothyroxine Sodium (Synthroid -) 50 mcg PO 0630 [facility] Last Admin: 02/02/17 06:52 Dose: 50 mcg Nystatin (Nystatin Oral Suspension -) 500,000 units PO Q6HPO [facility] Last Admin: 02/02/17 06:52 Dose: 500,000 units Polyethylene Glycol (Miralax (For Daily Use) -) 17 gm PO DAILY [facility] Last Admin: 02/01/17 09:49 Dose: 17 gm Quetiapine Fumarate (Seroquel -) 25 mg PO BID [facility] Last Admin: 02/02/17 10:44 Dose: 25 mg - Objective Vital Signs: Vital Signs Temperature 97.1 F L 02/02/17 09:00 Pulse Rate 68 02/02/17 09:00 Respiratory Rate 16 02/02/17 09:00 Blood Pressure 82/53 02/02/17 09:00 O2 Sat by Pulse Oximetry (%) 98 02/02/17 09:00 Constitutional: Yes: Calm Eyes: Yes: Conjunctiva Clear HENT: Yes: Atraumatic Neck: Yes: Supple Cardiovascular: Yes: S1, S2 Respiratory: Yes: CTA Bilaterally Gastrointestinal: Yes: Soft Genitourinary: Yes: WNL Musculoskeletal: Yes: Muscle Weakness Edema: No Neurological: Yes: Confusion Labs: CBC, BMP 02/02/17 06:00 02/02/17 06:00 INR, PTT INR 2.16 (0.82-1.09) H 02/02/17 06:00 Problem List - Problems (1) Abscess Code(s): L02.91 - CUTANEOUS ABSCESS, UNSPECIFIED (2) BOYD (acute kidney injury) Code(s): N17.9 - ACUTE KIDNEY FAILURE, UNSPECIFIED (3) Hyperkalemia Code(s): E87.5 - HYPERKALEMIA Assessment/Plan Current Medications Generic Name Dose Route Start Last Admin Trade Name Freq PRN Reason Stop Dose Admin Acetaminophen 325 mg 01/25/17 18:09 01/31/17 09:50 Tylenol - PO 325 mg Q6H PRN Administration FEVER OR PAIN Bisacodyl 10 mg 01/25/17 18:09 02/01/17 09:50 Dulcolax Suppository - RC 10 mg DAILY PRN Administration CONSTIPATION Clindamycin HCl 300 mg 01/31/17 22:00 02/02/17 06:52 Cleocin - PO 300 mg TID SHAMEKA Administration Hydromorphone HCl 4 mg 01/31/17 10:46 02/01/17 19:10 Dilaudid - PO 4 mg Q6H PRN Administration Levothyroxine Sodium 50 mcg 01/26/17 06:30 02/02/17 06:52 Synthroid - PO 50 mcg 0630 SHAMEKA Administration Nystatin 500,000 units 01/29/17 00:00 02/02/17 06:52 Nystatin Oral Suspension - PO 500,000 units Q6HPO SHAMEKA Administration Polyethylene Glycol 17 gm 01/26/17 10:00 02/01/17 09:49 Miralax (For Daily Use) - PO 17 gm DAILY SHAMEKA Administration Quetiapine Fumarate 25 mg 01/25/17 22:00 02/02/17 10:44 Seroquel - PO 25 mg BID SHAMEKA Administration Laboratory Tests 01/30/17 06:00 CORY M-Tim Not observed LESIA Screen Pending c-ANCA Pending Proteinase 3 (PR3) Pending p-ANCA Pending Atypical p-ANCA Pending Myeloperoxidase Ab Pending Double Strand DNA Ab 5 Glomerular Base Memb Ab 5 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 CKD 2. hyperkalemia resolved 3. anemia 4. hypothyroidism 5. leg abscess 6. UTI 7. hypernatremia Plan - renal function stabilizing - renal workup is in progress - will start d5w - repeat labs in am - monitor hg - will follow Dr Cat
[2017-02-02] MEDS ORDERED: DEXTROSE 5%-WATER - 1,000 ML IV SCH (14:45)
[2017-02-02 16:30] LABS: C-ANCA <1:20 titer (Neg:<1:20); MYELOPEROXIDASE ANTIBODY <9.0 U/mL (0.0-9.0); P-ANCA <1:20 titer (Neg:<1:20); PROTEINASE-3 ANTIBODY <3.5 U/mL (0.0-3.5)
--- NOTE | 2017-02-02 16:49 | PN ---
Progress Note, Physician History of Present Illness: stable - Current Medication List Current Medications: Active Medications Acetaminophen (Tylenol -) 325 mg PO Q6H PRN PRN Reason: FEVER OR PAIN Last Admin: 01/31/17 09:50 Dose: 325 mg Bisacodyl (Dulcolax Suppository -) 10 mg RC DAILY PRN PRN Reason: CONSTIPATION Last Admin: 02/01/17 09:50 Dose: 10 mg Clindamycin HCl (Cleocin -) 300 mg PO TID [facility] Last Admin: 02/02/17 06:52 Dose: 300 mg Hydromorphone HCl (Dilaudid -) 4 mg PO Q6H PRN Last Admin: 02/01/17 19:10 Dose: 4 mg Dextrose (D5w -) 1,000 mls @ 35 mls/hr IV ASDIR [facility] Levothyroxine Sodium (Synthroid -) 50 mcg PO 0630 [facility] Last Admin: 02/02/17 06:52 Dose: 50 mcg Nystatin (Nystatin Oral Suspension -) 500,000 units PO Q6HPO [facility] Last Admin: 02/02/17 06:52 Dose: 500,000 units Polyethylene Glycol (Miralax (For Daily Use) -) 17 gm PO DAILY [facility] Last Admin: 02/01/17 09:49 Dose: 17 gm Quetiapine Fumarate (Seroquel -) 25 mg PO BID [facility] Last Admin: 02/02/17 10:44 Dose: 25 mg - Objective Vital Signs: Vital Signs Temperature 97.1 F L 02/02/17 09:00 Pulse Rate 68 02/02/17 09:00 Respiratory Rate 16 02/02/17 09:00 Blood Pressure 82/53 02/02/17 09:00 O2 Sat by Pulse Oximetry (%) 98 02/02/17 09:00 Constitutional: Yes: No Distress HENT: Yes: Atraumatic Neck: Yes: Supple Cardiovascular: Yes: Regular Rate and Rhythm Respiratory: Yes: CTA Bilaterally Gastrointestinal: Yes: Normal Bowel Sounds Extremities: Yes: Other (WOUND LEFT LOWER CALF IMPROVING) Neurological: Yes: Alert Labs: CBC, BMP 02/02/17 06:00 02/02/17 06:00 INR, PTT INR 2.16 (0.82-1.09) H 02/02/17 06:00 Problem List - Problems (1) Abscess Assessment/Plan: iv abx WOUND CARE AND DRESSING CHANGE HAS BEEN DONE DAILY SINCE ADMISSION Code(s): L02.91 - CUTANEOUS ABSCESS, UNSPECIFIED (2) Urinary tract infection Assessment/Plan: on meds uc SEEN Code(s): N39.0 - URINARY TRACT INFECTION, SITE NOT SPECIFIED Qualifiers: Urinary tract infection type: site unspecified Hematuria presence: with hematuria Qualified Code(s): N39.0 - Urinary tract infection, site not specified; N39.0 - Urinary tract infection, site not specified; R31.9 - Hematuria, unspecified; R31.9 - Hematuria, unspecified (3) BOYD (acute kidney injury) Assessment/Plan: CR NOT IMPROVING PROBABLY CKD NEPHRO CONSULT Code(s): N17.9 - ACUTE KIDNEY FAILURE, UNSPECIFIED (4) Thrush, oral Assessment/Plan: [place] SWISH AND SWALLOW Code(s): B37.0 - CANDIDAL STOMATITIS (5) DVT (deep venous thrombosis) Assessment/Plan: h/o dvt at previous hosp...minden presb on coumadin inr high today will hold cut down to 3 mg po daily Code(s): I82.409 - ACUTE EMBOLISM AND THOMBOS UNSP DEEP VN UNSP LOWER EXTREMITY (6) Anemia Code(s): D64.9 - ANEMIA, UNSPECIFIED Assessment/Plan AWAITING PLACEMENT
[2017-02-02] MEDS ORDERED: WARFARIN NA 2 MG TABLET (UD) PO SCH (18:00)
[2017-02-03 06:06] LABS: SERUM IRON 43 ug/dL (27-139); TOTAL IRON BINDING CAPACITY 183 ug/dL (250-450); UIBC 140 ug/dL (118-369)
[2017-02-03] MEDS: LEVOTHYROXINE NA 50 MCG TABLET (FP) PO SCH (06:21)
[2017-02-03] MEDS: NYSTATIN 500,000 UNITS/5 ML SUSPENSION PO SCH (06:21)
[2017-02-03] MEDS: CLINDAMYCIN HCL 150 MG CAPSULE (FP) PO SCH (06:21)
[2017-02-03 08:28] LABS: INR 2.42 (0.82-1.09); PROTHROMBIN TIME (PATIENT) 27.4 SEC (9.98-11.88)
[2017-02-03 08:44] LABS: ANION GAP 6 (8-16); CO2 31 mmol/L (21-32); GLUCOSE,RANDOM 88 mg/dL (74-106)
[2017-02-03 08:45] LABS: CREATININE 2.8 mg/dL (0.55-1.02)
[2017-02-03 09:33] VITALS: BP 104/76; PULSE 70; TEMP 98.2
--- NOTE | 2017-02-03 16:42 | DS ---
Physical Examination Vital Signs: Vital Signs Temperature 98.2 F 02/03/17 09:00 Pulse Rate 70 02/03/17 09:00 Respiratory Rate 18 02/03/17 09:00 Blood Pressure 104/76 02/03/17 09:00 O2 Sat by Pulse Oximetry (%) 96 02/03/17 09:00 Labs: CBC, BMP 02/02/17 06:00 02/03/17 06:15 Discharge Summary Reason For Visit: UTI ABSCESS Condition: Guarded - Instructions Diet, Activity, Other Instructions: wound care and dressing change daily Disposition: [facility] - Home Medications Comprehensive Discharge Medication List: Ambulatory Orders Acetaminophen [Tylenol] 2 tab PO Q6H PRN 01/25/17 Alprazolam [Xanax] 0.25 mg PO Q6H PRN 01/25/17 Bisacodyl Suppository [Dulcolax Suppository -] 10 mg RC DAILY PRN 01/25/17 Citalopram Hydrobromide [Celexa -] 10 mg PO DAILY 01/25/17 Docusate Sodium [Move It Along] 100 mg PO BID 01/25/17 Gabapentin 300 mg PO BID 01/25/17 Hydromorphone HCl 4 mg PO Q6H PRN 01/25/17 Lactobacillus Acidophilus [Acidophilus] 100 mg PO BID 01/25/17 Levothyroxine Sodium [Levo-T] 50 mcg PO 0630 01/25/17 Magnesium Hydroxide [Milk of Magnesia] 1,200 mg PO DAILY PRN 01/25/17 Mirtazapine [Remeron -] 30 mg PO HS 01/25/17 Polyethylene Glycol 3350 [Miralax 255 gm Btl -] 17 gm PO DAILY 01/25/17 Quetiapine Fumarate [Seroquel -] 25 mg PO BID 01/25/17 Sennosides [Senokot] 2 tab PO HS 01/25/17 Clindamycin [Cleocin -] 300 mg PO Q6HPO #15 capsule 02/01/17 Warfarin Na [Coumadin -] 4 mg PO DAILY@1800 tablet 02/02/17 [facility]
== END 2017-02-03 09:33 | DRG 683 ==
LOC: JER 10:52 → JERBED 16:30 → J7W 23:52
PROVIDERS: ADMIT Internal Medicine; ATTEND Internal Medicine
PROC: 30233N1 Transfusion of Nonautologous Red Blood Cells into Peripheral Vein, Percutaneous Approach (ICD-10-PCS; principal; 2017-01-27)
DX: N17.9 Acute kidney failure, unspecified (principal); N39.0 Urinary tract infection, site not specified; L03.116 Cellulitis of left lower limb; B37.0 Candidal stomatitis; E87.0 Hyperosmolality and hypernatremia; E87.5 Hyperkalemia; F03.90 Unspecified dementia, unspecified severity, without behavioral disturbance, psychotic disturbance, mood disturbance, and anxiety; N18.9 Chronic kidney disease, unspecified; D63.1 Anemia in chronic kidney disease; E03.9 Hypothyroidism, unspecified
CPT/HCPCS: 36415; 36430; 71010-TC; 74176-TC; 76775-TC; 76856-TC; 80048; 80053; 80156; 81003; 81015; 82272; 82436; 82550; 82553; 82570; 82728; 82803; 83516; 83520; 83540; 83550; 83605; 84100; 84133; 84155; 84165; 84300; 84484; 85025; 85027; 85610; 85730; 86038; 86225; 86256; 86704; 86706; 86708; 86803; 86850; 86870; 86900; 86901; 86902; 86922; 87040; 87070; 87086; 87205; 87324; 87340; 87449; 93005; 93010; 97116-GP; 97161-GP; 99285-25; P9058